=== PATIENT | female | born 1950 | race Caucasian/White ===

== ENCOUNTER → 2016-08-18 | Outpatient (CLI) | payer OTHER | LOC: FIMAGING 13:33 | PROVIDERS: ATTEND Internal Medicine Endocrinology, Diabetes & Metabolism | DX: R05 Cough (principal) ==

== ENCOUNTER → 2016-08-21 | Outpatient (CLI) | payer OTHER ==
[~2016-08-21] MED LIST: GADOBUTROL 10 ML VIAL IVP ONE
== END ==
LOC: FIMAGING 08:20
PROVIDERS: ATTEND Internal Medicine Endocrinology, Diabetes & Metabolism
DX: R51 Headache (principal); R42 Dizziness and giddiness; H53.8 Other visual disturbances
CPT/HCPCS: 70553; A9585

== ENCOUNTER 2017-10-26 13:10 | Inpatient (IN) | payer OTHER ==
[2017-10-26] MEDS ORDERED: ACETAMINOPHEN 325 MG TAB PO PRN (16:32)
[2017-10-26] MEDS ORDERED: ONDANSETRON 4 MG/2 ML VIAL IVP PRN (16:32)
--- NOTE | 2017-10-26 18:25 | PDGENHP ---
History and Physical History and Physical: CC: Dyspnea and leg edema HISTORY: This patient has a long and complicated history of numerous medical and mental health illnesses in issues which have been chronically difficult to control. 1 of her illnesses is hypothyroidism for which she has chronically been prescribed replacement therapy. Recently however she stopped taking her thyroid a few months ago because of side effects from thyroid replacement tablets. She has been working with Dr. Maldonado as he has recommended resuming therapy but she has been unable to bring herself back to taking this therapy. She has had several recent blood tests with TSH in the 75-80 range with very low hormone levels. He in addition she has had worsening of symptoms from several other issues along with some new symptoms. The primary new symptom at this time is several weeks or probably more like 3 months of progressive dyspnea without cough chest pain palpitations or fevers, along with progressive leg swelling. There is no orthopnea and no nocturnal dyspnea per se. There is no history of heart or lung disease although for reasons that are unclear she does have nocturnal dyspnea and uses oxygen at home at night. She has never been formally tested for sleep apnea and is not as far as I can tell diagnosed with pulmonary hypertension so far. She does have history of coronary artery disease and this is how her mother . Additionally there is ongoing trouble with chronic and very poorly controlled anxiety and panic, depression, and pain. She saw Dr. Maldonado in the clinic yesterday and because of the progressive dyspnea and leg swelling he has referred her to inpatient care here by direct admission for further assessment and treatment of that. In addition he would like to have his trying get her back on thyroid medicine if we can here. I reviewed her past Clinic in hospital records in detail and there is quite a bit of very helpful information, and I have interviewed the patient and obtained quite a bit of other historical information that is very relevant to all of this. Very notable in her life, are some significant traumatic events that I believe have shaped her responses to her medical illnesses and treatments for them. Notable is that some time ago her piano assembler recommended a hysterectomy which the patient did not feel she needed. She had the surgery but ended up with significant injury to bowel and developed severe peritonitis. The patient apparently was home as she was developing her peritonitis and states that she repeatedly told the piano assembler that she was having terrible pain and very ill, but she states the piano assembler told her that this was all expected and she would have to learn to live with it, and called the problem "hysterectomy hysteria". Finally the patient became severely ill sounds like probably in septic shock with severe peritonitis and came into the emergency room where the piano assembler partners found her to be severely ill. She required emergency abdominal surgery in the long stay in ICU. There was quite a bit of pain associated with the peritonitis, and quite a bit of pain in the postop setting. There have also been other traumatic medical episodes, and there has been a very major traumatic episode in terms of a family financial crisis that she feels somehow responsible for and changed her life dramatically as well as the rest of her family. The patient has a very long history now mostly since then of severe anxiety which has never really been well controlled, severe panic attacks, and depression. There was 1 episode where she was admitted to the mental health unit here with suicidal ideation. She also has a chronic pain syndrome and is dependent on chronic prescribed daily narcotics for management of her pain. Quite notable in review of her hospital in clinic records is a very long list of many kinds of medications which she cannot take because of severe side effects. What I find 1 I discussed this with the patient is really pretty much the same thing that I find in her mental health records and her clinic records with Dr. Maldonado. That is that the patient describes after most medications a very prompt reaction of severe pain usually occurring within minutes after taking any tablet. She has spent quite a bit of time and effort over the years switching from medicine to medicine or from brand to brand or supplier to supplier for the same medicine trying to find something that she can tolerate. She often stops taking her medicines altogether including her mental health medicines, her pain medicines and most recently her thyroid medicines. She repeatedly seems to believe that she has found the medicine that she will tolerate only to find that over time she continues to be unable to take the newer medicines or newer brand. Going off of her medicines due to the side effects often leads to dramatic worsening in her pain or her anxiety or panic or depression. Curiously, though the patient states that she has terrible symptoms after taking oral lorazepam, she says she does fine when she gets IV lorazepam. Also though she has had significant difficulty with some oral pain medicines, she has no trouble with her fentanyl patches. There have been a couple of other medicines over time that she was able to tolerate taking orally but really almost no oral medicines have been tolerated. Notably in the psychiatrist's notes from her mental health stay here in 2013, the patient displayed extremely dramatic panic attacks when given any oral medication and complained of severe pain in various parts of her body described in different ways but in unusually intricate detail. In addition the patient repeatedly stated that she felt like she was going to during these episodes there. When I asked the patient about taking any medications, it is very clear that she has extreme fear that drives a sense of panic in anticipation of taking the medicine. This happens pretty much every time she takes any medicine and it has been going this way for years. When I ask her about this fear and sense of panic, she describes that she knows she is going to have terrible pain and she is afraid of that pain. When I ask her other questions about her life and when I read her charts, it appears to me that the patient is fairly consumed with these fears and with this panic but requires ongoing medication on a daily basis such that this is a severely debilitating issue for her on a day-to-day basis. It is remarkable that she has never really had what sounds like any kind of allergic reaction to medications as best I can tell. ROS: Her ongoing chronic pains when I ask her about them now are described by her as constantly changing and always getting worse. Yet I can see from in her chart that she has been saying the same thing for years and quite typically always describes her pain as 10/10 and acutely worse than it has been in the past. Her pains are in multiple locations encompassing most of her body. She does describe to me some decrease in appetite recently and tells me that she has a cracked molar which hurts and she is having trouble eating do that as well. She has no symptoms of fever, rash, joint pain or swelling, digestive problems, nausea, neurologic symptoms. Otherwise 10 system review of systems unrevealing for anything acute PAST MEDICAL HISTORY: Chronic pain syndrome, complex and diffuse, requiring daily prescribed narcotic on which she is dependent Chronic anxiety disorder, chronically poorly controlled in severely debilitating Chronic panic disorder, with again chronically poor control and severely debilitating Major depressive disorder, also poorly controlled over time Peritonitis due to bowel injury from hysterectomy, with severe sepsis, resultant bowel stricture Reflux Hysterectomy Tonsillectomy Cholecystectomy Appendectomy Multiple D and C procedures FAMILY MEDICAL HISTORY: Mother of coronary disease and ischemic heart failure SOCIAL HISTORY: and lives with her No history of tobacco use Some history of secondhand smoke Please see above for further social history MEDICATIONS: Notably the patient has not taken any thyroid medicine for a few months now though she chronically is on thyroid replacement Xanax is her current benzodiazepine, though she has been frequently switching back and forth between different brands of lorazepam and Xanax Fentanyl patch, oxycodone tablets Lovaza, Seroquel, vitamin D3 supplements PHYSICAL EXAMINATION: Vital Signs: Respirations are at 15-16 per minute, and look very relaxed; pulse normal no fever, some mild hypertension at this time Pulse ox monitor: I spent approximately 75 min with the patient at the bedside today. During that entire time she had a pulse oximeter on and I watched throughout. Her oxygen saturation at rest varies between 97 and 99% throughout this time. There were periods where the device was unable to read a good pulse wave and would put up either no reading or Melva Gee is low reading in the upper 80s. Examination: General: alert, oriented, normal mentation, normal attention, and interacts and converses with me normally Psychiatric: She is extremely anxious, with very depressed affect, cries frequently throughout our visit, and very clearly demonstrating significant fear. The fear again is primarily based on concern about impending pain. When I talked to her about using new medications or new therapies and we discuss her pain reactions to past medicines that she has used, she writhes in the bed vigorously and continuously. She does not seem to be at all aware of this until I pointed out to her. There is no tremor no signs of any kind of withdrawal. She is not confused or psychotic. Skin: warm, dry, good color, no rash HEENT: normal Neck: no mass or jvd, no palpable goiter Resps: relaxed Lungs: clear breath sounds Heart: regular, no murmur Abdomen: soft, nondistended, with some mild nonspecific tenderness without any evidence of peritonitis, +BS, no mass Upper Extremities: normal Lower Extremities: There is edema from the feet up to just below the knees with some pitting No Bleeding or bruising Neurologic: normal speech/language, normal canvas baster jumpbasting, no focal weakness IV site: looks normal LABORATORY DATA: She had blood test done at Dr. Joel navarro yesterday which include a TSH of 78, free T3 1.4, free T4 0.1. TSH 1 month ago was at 80 with again a very low hormone level. Also included in yesterday's lab tests were a normal CBC, normal metabolic panel , normal liver panel, normal D-dimer RADIOLOGY STUDIES: None done at this time yet I did review a chest x-ray done a few years ago here, in on my reading of the images there is no sign of any cardiac pulmonary pleural or vascular abnormality or any other significant change 12 LEAD EKG: An EKG was done at the clinic yesterday but so far been unable to see a result or view the tracing but the patient was unaware of there being any abnormalities ASSESSMENT: * severe hypothyroidism in a woman previously diagnosed and treated for thyroid but unwilling to take thyroid medicine for some time now * edema of the legs * 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 list of suspicions * Differential diagnosis also includes right-sided CHF (long history of nocturnal hypoxemia and nocturnal oxygen use) and least likely left-sided heart failure(no sign of pulmonary edema now but needs assessment, could have thyroid heart disease and has family history of left-sided ischemic heart disease) * progressive dyspnea without current evidence of hypoxemia, and a normal lung exam * Consider right-sided heart failure, lung injury from secondhand smoke exposure , thyroid induced left heart disease * severe and poorly controlled anxiety and panic disorders as well as depression ; these are all chronic and historically with poor control * chronic pain syndrome with chronic daily prescribed narcotic dependency * history of traumatic experiences in life including traumatic medical experiences involving severe pain and high risk of I believe that this patient has a severe fear of pain, a severe fear of dying, and unfortunately has come into a state where she has continual anticipation of impending pain and/or . Somehow her fears and her anticipation of impending disaster has transferred to medications, making the taking of oral medications very difficult for her. She suffers severe pains shortly after taking most medications orally, and when discussing any potential new medications with me here is showing very clear psychomotor signs of rapidly rising panic and fear. She has scribe these to concern of pain induced by the medicines that we might consider. As mentioned above it is quite interesting and notable that she can do quite well with intravenous medicines or topically applied medicines, but almost never does well with oral medications so far. Of particular note is that thyroid hormone replacement, which should have no way of really causing any pain being a normal part of her body induces the same pain reactions as other medications. I spent quite a bit of time reviewing all of this in detail with the patient and at the bedside today. The real questions will be how to move her past this. I believe for the moment that we may start with some intravenous thyroid replacement, and I have reviewed her with her repeatedly that this should be just like the Ativan where she can tolerate the IV but not oral form. I reviewed with her that as thyroid hormone is a normal part of her body a cannot possibly cause her any harm as long she gets appropriate doses. Despite this, so far she is very worried about possibly having severe pain and/or severe panic upon receiving this medication. It also may be the case that if she tolerates IV levothyroxine, we may be able to give her liquid oral levothyroxine, and I have discussed with her the idea that I may not be able to transfer her fears and anticipate patient's away from pills and capsules, but we may be able to prevent them from being associated with liquid medications. If we try this and it actually works she may be able to use liquid forms of other medications such as benzodiazepine and others. Of also reviewed with her that she is at great risk for significant worsening medical conditions including heart failure and significant neuropsychiatric issues due to her untreated thyroid condition, and that we must absolutely fine somewhat to get thyroid and her. So far she is willing to attempt to go long with all of this. I would note that her is extremely supportive through all of this discussion, though he is appropriately allowing the patient to engage with me in the discussion, and not forcing himself in any way into the conversation. PLANS: * Inpatient admission to the hospital is clearly indicated due to her multiple issues as above * We have given her a dose of her Xanax from home here in the room right now * Once the Xanax is on board will attempt to give her a dose of IV levothyroxine at low dose and monitor her response * If tolerated will continue IV levothyroxine with gradual increasing and dosing. Over time my plan would be to try and replace the IV levothyroxine with oral liquid levothyroxine here, though if it is not available here we may need to get our pharmacy did order from elsewhere * Continue her Xanax, fentanyl patches, oxycodone and other home medicines otherwise and will allow her to use her home medicine supply so that she is using tablets that she is more confident will be tolerated; her is retrieving those medicine from their home in [place] at this time * Echocardiogram is ordered to try and assess for pulmonary hypertension and right and left ventricular function etc * All trying get tracing of the EKG from the clinic or have Dr. Maldonado tell me what he sees on that tracing * PFTs to be sure there is no chronic obstructive lung disease from her secondhand smoke exposure * Chest x-ray to be sure there is no evidence of any other lung issues or other issues that would impact her respirations * Continue on nocturnal oxygen use here as she does at home I have reviewed the patient's past medical records as part of this assessment, including previous hospitalization and clinic records including laboratory studies, x-ray images, physician notes It is recommended that other treating practitioners consider reviewing notes from Dr. Maldonado clinic records and the behavior health unit records from Dr. Gustabo Phillips if other details of her past assessments to the reader would be helpful
[2017-10-26] MEDS: LEVOTHYROXINE 100 MCG/5 ML SYR IVP SCH (18:43)
[2017-10-26] MEDS ORDERED: ALPRAZolam 1 MG TAB PO PRN (18:51)
[2017-10-26] MEDS ORDERED: ESTRADIOL VIVELLE 0.075 MG PATCH TD SCH (19:00)
[2017-10-27] MEDS: OXYCODONE IR PO PRN ×4 (08:55→21:13)
[2017-10-27] MEDS: ENOXAPARIN 40 MG/0.4 ML SYR SC SCH (08:56)
[2017-10-27] MEDS ORDERED: POLYETHYLENE GLYCOL 3350 17 GM PKT PO SCH (09:00)
--- NOTE | 2017-10-27 09:26 | ASMTLACE ---
NEERAJ Acuity / Level of Answers: Yes Care: Did the patient have an inpatient admission? Comorbidities - select Answers: Coronary Artery Disease all that apply Opioid dependence / Chronic pain # of Emergency department Answers: 0 visits in the last 6 months Social determinants Answers: History of trauma (PTSD, child abuse, domestic violence, etc.) Mental health diagnosis (anxiety, depression, pers onality disorders, etc.) Score: 15 Date Signed: 10/27/2017 09:25 AM Electronically Signed By:Christina Laurent
--- NOTE | 2017-10-27 09:36 | PDMN ---
Medical Necessity Medical necessity: est los>2mn for severe hypothyroidism w/refusal of medication in past, LE edema, progressive dyspnea; comorbid severe and poorly controlled anxiety and panic disorder, chronic pain, major depressive disorder and hx hysterectomy w/peritonitis r/t bowel injury, severe sepsis, bowel stricture; admit for IV levothyroxine w/gradual increase and dosing, transition to oral, r/o pulm htn; per order and H&P 10/26/17
[2017-10-27] MEDS: LEVOTHYROXINE 100 MCG/5 ML SYR IVP SCH (10:21)
--- NOTE | 2017-10-27 12:13 | ASMTCMCOM ---
CM Note CM Note Notes: Pt's chart reviewed for D/C planning. Pt is a 67 y/o female who is hospitalized due to 3 months of progressive dyspnea and leg swelling. Pt has hypothyroidism and is prescribed replacement therapy. She stopped taking her medication approx 3 months ago due to unwanted side effects. In addition Pt has chronic pain, anxiety and depression. Pt has a complicated and lengthy hx of following through with medications due to reported significant side effects; discussions of medications can trigger feelings and symptoms of panic. No allergies have been identified. There appears to be a strong relationship between Pt's medical symptoms, mental illness' and medication compliance. Pt is seeing a therapist. She presently does not have a psychiatrist. She was hospitalized on [facility] in 2013 due to suicidality. Prior to this hospitalization Pt lived independently with her , Dmitriy # [phone]. It is anticipated that she will not have CM needs upon D/C. CM will follow. D/C Anticipate independent. Date Signed: 10/27/2017 12:12 PM Electronically Signed By:Jinny De La Rosa
--- NOTE | 2017-10-27 13:10 | ECHO ---
[email or web address] [address] [address] Main: [phone] Fax: Transthoracic Echocardiogram Name: JENNYFER AC MR#: [id number] Study Date: 10/27/2017 Study Time: 10:43 AM Date of : 1950 Age: 67 year(s) Height: 154.9 cm (61 in.) Weight: 67.13 kg (148 lb.) BSA: 1.66 m2 Gender: Female Examination: Echo Indication: Edema and hypoxemia, hypothyroidism Image Quality: Adequate Contrast: Requested by: Dmitriy Wan BP: 104 mmHg/61 mmHg Heart Rate: Rhythm: Indication: Edema and hypoxemia, hypothyroidism Procedure Staff Group Chief Operator: Savannah Otto RDCS Reading Physician: Roverto Velásquez MD Requesting Provider: Conclusions: No pericardial effusion. Preserved left ventricular systolic function. Mild left atrial enlargement. Mild mitral regurgitation. Mild tricuspid regurgitation with normal right ventricular systolic pressure. Measurements: Chambers Valvular Assessment AV/MV Valvular Assessment TV/PV Normal Normal Normal Name Value Range Name Value Range Name Value Range Ao Nava (2D): 2.2 cm (1.4 cm-2.6 AV Vmax: 1.25 m/s (1 m/s-1.7 PV Vmax: 0.88 m/s (0.6 m/s-0.9 cm) m/s) m/s) IVSd (2D): 0.9 cm (0.6 cm-1.1 AV maxP mmHg ( - ) PV PGmax: 3 mmHg ( - ) cm) AV meanP mmHg ( - ) LVDd (2D): 3.7 cm (3.9 cm-5.3 JOSE (VTI): 3.3 cm ( - ) cm) MV E Vmax: 0.84 m/s ( - ) LVDs (2D): 2.6 cm (2.1 cm-4 MV A Vmax: 1.04 m/s ( - ) cm) MV E/A: 0.81 ( - ) LVPWd (2D): 0.9 cm ( - ) MV PHT: 0.056 s ( - ) LVOTd 2.0 cm 2.0 cm mm MVA (PHT): 3.9 s ( - ) LVEF (2D): 60 (>=54 %) RVDd(2D): 3.2 cm (1.9 cm-3.8 cmmm) Continued Measurements: Chambers Valvular Assessment AV/MV Name Value Name Value LADs: 3.8 cm MV DecTime: 169 m/s LADs Lon.6 cm MV E/E' Lateral: 11.50 LA Area: 18.6 cm2 LA Volume: 64 ml LA Volume Index: 38.6 ml/m2 Patient: JENNYFER AC Study Date: 10/27/2017 Page 1 of 2 10:43 AM RA Area: 15.3 cm2 Additional Vessels Name Value Ao Ascendin.2 cm Findings: Left Ventricle: Normal size left ventricle. No LV hypertrophy. Normal global systolic LV function. EF is 60 %. No regional wall motion abnormality. Unable to assess diastolic dysfunction. Right Ventricle: Normal size right ventricle. Normal RV function. Left Atrium: The left atrium is mildly dilated. Right Atrium: The right atrium is normal in size. Mitral Valve: The mitral valve is normal in appearance and function. Mild mitral valve regurgitation is present. No mitral stenosis is present. Aortic Valve: The aortic valve is tri-leaflet. Mild aortic valve regurgitation is present. No aortic valve stenosis is present. Tricuspid Valve: The tricuspid valve is normal in appearance and function. Mild tricuspid regurgitation is present. The pulmonary artery pressure is normal. Pulmonic Valve: The pulmonic valve is normal in appearance and function. There is no pulmonic regurgitation seen. Aorta: The aorta is normal. Normal size aortic root measuring 2.2 cm. Normal size ascending aorta measuring 3.2 cm. IVC: Subcostal not well visualized. Pericardium: No pericardial effusion. No pleural effusion. Exam Comments: Patient has chronic pain and is unable to tolerate much pressure in apical region. Limited acoustic windows. (No Signature Object) Patient: JENNYFER AC Study Date: 10/27/2017 Page 2 of 2 10:43 AM [id number]
[2017-10-27] MEDS: ALPRAZolam 0.5 MG TAB PO PRN ×2 (14:58→21:13)
[2017-10-27] MEDS: POLYETHYLENE GLYCOL 3350 17 GM PKT PO SCH (14:58)
[2017-10-27] MEDS ORDERED: ALBUTEROL 3 ML DEYVIAL ONE (15:19)
--- NOTE | 2017-10-27 17:03 | ASMTCMCOM ---
CM Note CM Note Notes: CM spoke with son. Son and daughter very involved in her care. He has dinner with her 6 nights a week; his sister has dinner with her the seventh night. he has set cameras up in her home so that he can check on her welfare. (His mother is not aware of them). Son reported that he had attempted to have home care services provided by [facility] following her DC from [facility]. When [facility] came to the home his mother refused services; Pt's son believes this is due to her not liking men or sickness and [facility] sent a man with cold symptoms. Son recently decided to once again attempt services with [facility]; he is in agreement that she is in need of PT/OT for increased balance and strength. He seemed resistent to SNF rehab placement; he began to cry when this was brought up as a recommendation. He plans to visit his mother tomorrow and will request a mtg with the CM. CM to follow. D/C Plan: TBD Date Signed: 10/27/2017 05:03 PM Electronically Signed By:Jinny De La Rosa
--- NOTE | 2017-10-27 18:59 | HOSPPROG ---
Hospitalist Progress Note Assessment/Plan: DIAGNOSES: * severe hypothyroidism inpatient has been unwilling to take medication, with thyroid myxedema * severe chronic anxiety disorder, chronic panic disorder, and chronic pain disorder, all intertwined * sense of dyspnea that she is experiencing likely is related to her hypothyroidism as there is no evidence of any cardiac, pulmonary, vascular, anemic or other cause of dyspnea and no hypoxemia * long history of numerous traumatic experiences that underlie the above I reviewed the encouraging normal Cardiac and Pulmonary test results with the patient in detail. At this point I do not think there is any indication for any further evaluation for her dyspnea which I believe is due to her untreated thyroid disease and aggravated by her anxiety disorder. As well I think her edema is probably thyroid myxedema and should recover with treatment of her thyroid disorder, but will follow for results of that. We talked again about the patient's anxiety panic and pain symptoms, her history of traumatic experiences, and how these might be managed. These are all very chronic and complex and intertwined issues. The main thing to start with is getting her thyroid disorder treated, as we will not get anywhere with any of her problems nor prevent other complications and till we get that accomplished. She has received now 2 doses of IV levothyroxine and tolerated them both well with minimal anxiety spells. The plan will be to gradually increase doses of thyroid medicine here and when I am able to get oral liquid thyroxine will switch to oral liquid and try and treat her that way. Once we have enough thyroid medication on board I think she will start to feel somewhat better but will still need lots of other help with all of her issues as above. I reviewed again that we may be able to prescribe for her some oral lorazepam to use as pose the pills that she has an easier time perhaps tolerating that medicine. The patient had numerous questions today and answered these for her. SUBJECTIVE: Remains quite anxious, and with no change in her severe pain. She has now received 2 doses of IV levothyroxine and had minor anxiety symptoms associated with these which actually began before she got either dose, but did not have any untoward pain experiences and did not have significant panic. No other new symptoms at this time OBJECTIVE Vitals reviewed: All stable without fever. There had been a couple of low readings on the pulse oximetry, but these are associated with poor pulse readings when I reviewed them on the monitor and I do not believe there actually real Exam: alert oriented skin warm dry color ok resps not labored lungs clear BSs heart regular abd soft nondistended nontender, bowel sounds present limbs warm, no edema iv site ok Echocardiogram has been done showing good LV function, good RV function, normal pulmonary pressures, no more than trivial valve dysfunctions, no other concerning abnormalities I reviewed chest x-ray images and there is no evidence of any acute or chronic pulmonary or cardiac illness, no effusions, no tumors She has had bedside spirometry done and I reviewed these with the respiratory therapist. She has completely normal pulmonary function testing with bedside spirometry. Objective: Vital Signs Temp Pulse Resp BP Pulse Ox 36.8 C 73 12 138/88 H 87 L 10/27/17 16:00 10/27/17 16:00 10/27/17 16:00 10/27/17 16:00 10/27/17 16:00 10/26/17 10/27/17 10/28/17 06:59 06:59 06:59 Intake Total 650 Balance 650 - Time Spent With Patient Time Spent with Patient: greater than 35 minutes Time Spent with Patient: Greater than 35 minutes spent on this patients care, greater than 50% of time spent counseling, educating, and coordinating care regarding the above mentioned plan. ICD10 Worksheet Patient Problems: Problems Problem Status Onset Depressive disorder Acute
[2017-10-27] MEDS: QUEtiapine FUMARATE 25 MG TAB PO PRN (21:13)
[2017-10-28] MEDS: QUEtiapine FUMARATE 25 MG TAB PO PRN ×2 (03:32→20:51)
[2017-10-28] MEDS: ALPRAZolam 0.5 MG TAB PO PRN ×6 (03:32→23:17)
[2017-10-28] MEDS: OXYCODONE IR PO PRN ×5 (03:33→20:51)
[2017-10-28] MEDS: fentaNYL 75 MCG PATCH TD SCH ×2 (09:13→09:21)
[2017-10-28] MEDS: ENOXAPARIN 40 MG/0.4 ML SYR SC SCH (09:21)
[2017-10-28] MEDS: LEVOTHYROXINE 100 MCG/5 ML SYR IVP SCH (11:00)
--- NOTE | 2017-10-28 11:19 | ASMTCMCOM ---
CM Note CM Note Notes: Please disregard the note at 5:03pm it was for another pt Date Signed: 10/28/2017 11:18 AM Electronically Signed By:Mary Domínguez RN
[2017-10-28] MEDS: POLYETHYLENE GLYCOL 3350 17 GM PKT PO SCH (13:50)
--- NOTE | 2017-10-28 17:48 | HOSPPROG ---
Hospitalist Progress Note Assessment/Plan: DIAGNOSES: * severe hypothyroidism inpatient has been unwilling to take medication, with thyroid myxedema * severe chronic anxiety disorder, chronic panic disorder, and chronic pain disorder, all intertwined * sense of dyspnea that she is experiencing likely is related to her hypothyroidism as there is no evidence of any cardiac, pulmonary, vascular, anemic or other cause of dyspnea and no hypoxemia * long history of numerous traumatic experiences that underlie the above I reviewed the encouraging normal Cardiac and Pulmonary test results with the patient in detail. At this point I do not think there is any indication for any further evaluation for her dyspnea which I believe is due to her untreated thyroid disease and aggravated by her anxiety disorder. As well I think her edema is probably thyroid myxedema and should recover with treatment of her thyroid disorder, but will follow for results of that. The patient has now tolerated 3 doses of IV levothyroxine without difficulty. At this point I would increase her dose starting tomorrow. I have the pharmacist working to try and come up either with a source of oral liquid levothyroxine oral way to formulate the same. As soon as we have that available I will switch to oral levothyroxine. My goal would be to discharge her on a dose of 75 mcg daily, with very close attention in clinic to her symptoms and follow-up TSH and thyroid hormone levels testing in few weeks. The necessary dose would be difficult to predict due to uncertain disease of the absorption of the oral form compared to tablet form in her case, but this would be the usual scenario of titrating up new thyroid therapy. The patient continues to have as always her severe anxiety, fear, and panic, and pain, which as usual she describes as being the worst she has ever had and bad enough that she thought she might from the pain. SUBJECTIVE: No significant symptoms with today's dose of levothyroxine Took a shower today without taking any pain or anxiety medicine before hand. She would normally take these medicines before hand at home but the nurse was not comfortable with that. The result was is patient got into the shower when the water was still bit cold and this triggered severe panic in severe pain which lasted for hours for her. Otherwise today she does mention that she is feeling much more alert and clear minded, and perhaps a better appetite. OBJECTIVE Vitals reviewed: All stable without fever. Exam: alert oriented, actually seems to have a slightly better affect today in conversation than the last couple of days a little bit more relaxed skin warm dry color ok resps not labored lungs clear BSs heart regular abd soft nondistended nontender, bowel sounds present limbs warm, little change in the edema of her legs since admission iv site ok Echocardiogram has been done showing good LV function, good RV function, normal pulmonary pressures, no more than trivial valve dysfunctions, no other concerning abnormalities I reviewed chest x-ray images and there is no evidence of any acute or chronic pulmonary or cardiac illness, no effusions, no tumors She has had bedside spirometry done and I reviewed these with the respiratory therapist. She has completely normal pulmonary function testing with bedside spirometry. Objective: Vital Signs Temp Pulse Resp BP Pulse Ox 36.8 C 87 16 129/83 H 92 10/28/17 15:14 10/28/17 15:14 10/28/17 15:14 10/28/17 08:00 10/28/17 15:14 10/27/17 10/28/17 10/29/17 06:59 06:59 06:59 Intake Total 1050 Balance 1050 - Time Spent With Patient Time Spent with Patient: greater than 35 minutes Time Spent with Patient: Greater than 35 minutes spent on this patients care, greater than 50% of time spent counseling, educating, and coordinating care regarding the above mentioned plan. ICD10 Worksheet Patient Problems: Problems Problem Status Onset Depressive disorder Acute
[2017-10-28] MEDS ORDERED: LEVOTHYROXINE 100 MCG/5 ML SYR IVP SCH (17:49)
[2017-10-29] MEDS: OXYCODONE IR PO PRN ×5 (02:52→21:46)
[2017-10-29] MEDS: ALPRAZolam 0.5 MG TAB PO PRN ×4 (02:52→21:58)
[2017-10-29] MEDS: QUEtiapine FUMARATE 25 MG TAB PO PRN ×2 (02:53→21:48)
[2017-10-29] MEDS: ENOXAPARIN 40 MG/0.4 ML SYR SC SCH (09:17)
[2017-10-29] MEDS: [UNRECOGNIZED DRUG - OTHER] PO SCH (11:29)
[2017-10-29] MEDS: POLYETHYLENE GLYCOL 3350 17 GM PKT PO SCH (14:18)
--- NOTE | 2017-10-29 19:06 | HOSPPROG ---
Hospitalist Progress Note Assessment/Plan: DIAGNOSES: * severe hypothyroidism inpatient has been unwilling to take medication, with thyroid myxedema * severe chronic anxiety disorder, chronic panic disorder, and chronic pain disorder, all intertwined * sense of dyspnea that she is experiencing likely is related to her hypothyroidism as there is no evidence of any cardiac, pulmonary, vascular, anemic or other cause of dyspnea and no hypoxemia * long history of numerous traumatic experiences that underlie the above I reviewed the encouraging normal Cardiac and Pulmonary test results with the patient in detail. At this point I do not think there is any indication for any further evaluation for her dyspnea which I believe is due to her untreated thyroid disease and aggravated by her anxiety disorder. As well I think her edema is probably thyroid myxedema and should recover with treatment of her thyroid disorder, but will follow for results of that. We have progressed to the point of being able to give her some oral liquid levothyroxine, and I am starting to see, I believe, some mild early improvements in her thyroid condition with a decrease in edema and some better control over manifestations of her anxiety though these are trivial given the overall picture of her severe in global anxiety disorder. The main issue now will be finding some oral liquid levothyroxine that she can get that she is willing to take at home. It looks like the only likely possibility is a FDA approved levothyroxine capsule with liquid formulated medicine in the capsule. The patient seems willing to try taking this. However does not available to the hospital and not available currently and any local pharmacies. I am told that the [facility] pharmacies can obtain this if they order it. I will need to work with her insurance company to get a pre approved for giving her this formulation of levothyroxine, and my plan would be to fax prescription to a local pharmacy and have her bring the pills here. Will have to talk to the pharmacy and have them order it, and it may take some time to get it in. Ideally I would like to have her take the 1st dose here but that may not be practical and will have to see how things progress time tyler Again the patient has many concerns and engages in very lengthy discussion about her anxiety and panic disorders with me today. SUBJECTIVE: Overall she continues to have her usual anxiety and panic issues and frequent bouts of pain associated with these. No other new symptoms or issues today. We were able to give her some oral liquid levothyroxine compound in our pharmacy today, and she took this without incident. She does not notice necessarily feeling any better in any particular way at this time OBJECTIVE Vitals reviewed: All stable without fever. Exam: alert oriented, today on my examination she does have somewhat decreased psychomotor activity during difficult discussions, still remains anxious but I believe it actually by my assessment looks a little bit better though she does not notice any improvement skin warm dry color ok resps not labored lungs clear BSs heart regular abd soft nondistended nontender, bowel sounds present limbs warm, the edema of her legs is not gone but is improved notably today compared to previous exams iv site ok Echocardiogram has been done showing good LV function, good RV function, normal pulmonary pressures, no more than trivial valve dysfunctions, no other concerning abnormalities I reviewed chest x-ray images and there is no evidence of any acute or chronic pulmonary or cardiac illness, no effusions, no tumors She has had bedside spirometry done and I reviewed these with the respiratory therapist. She has completely normal pulmonary function testing with bedside spirometry. Objective: Vital Signs Temp Pulse Resp BP Pulse Ox 36.9 C 67 18 122/69 H 88 L 10/29/17 16:00 10/29/17 16:00 10/29/17 16:00 10/29/17 16:00 10/29/17 16:00 10/28/17 10/29/17 10/30/17 06:59 06:59 06:59 Intake Total 7903 037 2500 Balance 1962 537 9468 - Time Spent With Patient Time Spent with Patient: greater than 35 minutes Time Spent with Patient: Greater than 35 minutes spent on this patients care, greater than 50% of time spent counseling, educating, and coordinating care regarding the above mentioned plan. ICD10 Worksheet Patient Problems: Problems Problem Status Onset Depressive disorder Acute
[2017-10-29] MEDS ORDERED: POLYETHYLENE GLYCOL 3350 17 GM PKT PO ONE (20:16)
[2017-10-30] MEDS: ALPRAZolam 0.5 MG TAB PO PRN ×3 (03:45→15:10)
[2017-10-30] MEDS: OXYCODONE IR PO PRN ×5 (04:09→22:19)
[2017-10-30] MEDS: QUEtiapine FUMARATE 25 MG TAB PO PRN ×2 (04:26→22:20)
[2017-10-30] MEDS: ENOXAPARIN 40 MG/0.4 ML SYR SC SCH (08:57)
[2017-10-30] MEDS ORDERED: ESTRADIOL VIVELLE 0.075 MG PATCH TD SCH (09:00)
[2017-10-30] MEDS: fentaNYL 75 MCG PATCH TD SCH (09:25)
[2017-10-30] MEDS: [UNRECOGNIZED DRUG - OTHER] PO SCH ×3 (11:45→14:57)
--- NOTE | 2017-10-30 15:22 | ASMTCMCOM ---
CM Note CM Note Notes: Chart reviewed. Patient has anxiety regarding her medication regime. Mary Vasquez consulted to see patient. Report pending. No therapies ordered at this time. Plan: TBD Date Signed: 10/30/2017 03:14 PM Electronically Signed By:Jovana Fuentes RN
--- NOTE | 2017-10-30 17:24 | HOSPPROG ---
Hospitalist Progress Note Assessment/Plan: DIAGNOSES: * severe hypothyroidism inpatient has been unwilling to take medication, with thyroid myxedema * severe chronic anxiety disorder, chronic panic disorder, and chronic pain disorder, all intertwined * sense of dyspnea that she is experiencing likely is related to her hypothyroidism as there is no evidence of any cardiac, pulmonary, vascular, anemic or other cause of dyspnea and no hypoxemia * long history of numerous traumatic experiences that underlie the above She has now had 2 doses of oral levothyroxine seen in liquid compounded form from our pharmacy. Overall she has tolerated these well, however she has plenty of ongoing anxiety and fear issues, and plenty of ongoing pain and she is able to create scenarios where she feels that somehow the thyroid might be contributing to her pain symptoms. Going through things with her it is clear that the thyroid itself is not causing any pain, but she certainly has quite a bit of anticipatory anxiety going on around the medicine. The compounding form of liquid thyroid we are giving her is not stable and will only last about an hour so there is really not an easy way for us to compound something she can take at home. There are pharmacies that can compound at [place] have to be made in [facility] and shipped to a pharmacy here. Was more practical as there is a brand of liquid levothyroxine and capsules in standard doses, but we are unable to get that medicine here. We were however today able to find out that the [facility] are able to get this medicine and I have put in a prescription and found that her insurance does cover it albeit with a co-pay. I did order a 1 month supply of 75 mcg capsules which hopefully will be to that pharmacy within a day or 2. 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 At that point she should be able to go home and continue follow up with Dr. Maldonado. The oral thyroid medicine has been given here later in the day than would be ideal as they cannot get it formulated so far on the shift nurse manager to bring in for and early a.m. dose before breakfast. At home as with the oral tablets it will be recommended that she takes the capsules before breakfast in the morning I will order a set of thyroid studies tomorrow just to get a glimpse of what direction were going with the current dosing knowing that the TSH will certainly not be anywhere near steady state 4 weeks yet. But I do want to see that her free T3 and free T4 at least coming up reasonably well and that were but she the TSH a little bit. SUBJECTIVE: Overall she continues to have her usual anxiety and panic issues and frequent bouts of pain associated with these. No other new symptoms or issues today. We were able to give her some oral liquid levothyroxine compound in our pharmacy today, and she took this without incident. She does not notice necessarily feeling any better in any particular way at this time OBJECTIVE Vitals reviewed: All stable without fever. Exam: alert oriented, today on my examination she does have somewhat decreased psychomotor activity during difficult discussions, still remains anxious but I believe it actually by my assessment looks a little bit better though she does not notice any improvement skin warm dry color ok resps not labored lungs clear BSs heart regular abd soft nondistended nontender, bowel sounds present limbs warm, the edema of her legs is again slightly better today than in the past iv site ok Echocardiogram has been done showing good LV function, good RV function, normal pulmonary pressures, no more than trivial valve dysfunctions, no other concerning abnormalities I reviewed chest x-ray images and there is no evidence of any acute or chronic pulmonary or cardiac illness, no effusions, no tumors She has had bedside spirometry done and I reviewed these with the respiratory therapist. She has completely normal pulmonary function testing with bedside spirometry. Objective: Vital Signs Temp Pulse Resp BP Pulse Ox 36.7 C 83 12 167/104 H 94 10/30/17 15:16 10/30/17 15:16 10/30/17 15:16 10/30/17 16:25 10/30/17 15:16 10/29/17 10/30/17 10/31/17 06:59 06:59 06:59 Intake Total 250 1850 Balance 250 1850 - Time Spent With Patient Time Spent with Patient: greater than 25 minutes Time Spent with Patient: Greater than 25 minutes spent on this patients care, greater than 50% of time spent counseling, educating, and coordinating care regarding the above mentioned plan. ICD10 Worksheet Patient Problems: Problems Problem Status Onset Depressive disorder Acute
[2017-10-30] MEDS: POLYETHYLENE GLYCOL 3350 17 GM PKT PO SCH (17:37)
[2017-10-31] MEDS: ALPRAZolam 0.5 MG TAB PO PRN ×6 (03:44→22:42)
[2017-10-31] MEDS: QUEtiapine FUMARATE 25 MG TAB PO PRN ×2 (03:45→20:53)
[2017-10-31] MEDS: OXYCODONE IR PO PRN ×5 (03:51→20:53)
[2017-10-31] MEDS: ENOXAPARIN 40 MG/0.4 ML SYR SC SCH (07:47)
[2017-10-31] MEDS: [UNRECOGNIZED DRUG - OTHER] PO SCH (10:29)
[2017-10-31] MEDS: POLYETHYLENE GLYCOL 3350 17 GM PKT PO SCH (13:52)
--- NOTE | 2017-10-31 15:58 | HOSPPROG ---
Hospitalist Progress Note Assessment/Plan: DIAGNOSES: * severe hypothyroidism in a patient has been unwilling to take medication, with thyroid myxedema * Has now had 3 days of IV levothyroxine and pre days of oral levothyroxine. * On recheck today there is some initial improvement in her thyroid labs all around in line with what I would expect given her doses which have been intentionally low to start with * severe chronic anxiety disorder, chronic panic disorder, and chronic pain disorder, all intertwined and severely debilitating for this patient * sense of dyspnea that she is experiencing likely is related to her hypothyroidism and anxiety as there is no evidence of any cardiac, pulmonary, vascular, anemic or other cause of dyspnea and no hypoxemia * Occasional readings of hypoxia on pulse oximeter here are also showed with poor pulse wave reading, potentially related to her hypothyroidism and decreased pulses in her finger but we have yet to find any real hypoxemia 1 more getting good pulse readings from the device * long history of numerous traumatic experiences that underlie the above She has now had 3 doses of oral levothyroxine seen in liquid compounded form from our pharmacy. Overall she has tolerated these well, however she has plenty of ongoing anxiety and fear issues, and plenty of ongoing pain and she is able to create scenarios where she feels that somehow the thyroid might be contributing to her pain symptoms. At this point at least in my discussion with her today she is still willing to go ahead with a plan to begin treatment with oral capsules containing liquid levothyroxine preparation (tirosint brand). I had called in a prescription to pharmacy near her house yesterday; the ordered the medicine and now and has arrived there. Her plans to pick it up tonight and either bring it back here tonight or tomorrow morning. Plan is to give her her 1st dose of oral liquid thyroid by capsule tomorrow here. She should be able to discharge after that. I would plan for her to follow up closely with Dr. Maldonado either this Monday or next Monday in clinic to continue close monitoring and maintenance of this new therapy for her. The dose of Tirosint that I ordered for her 75 mcg. Her prior dose of tablets when she was taking it was 100 mcg. According to the manufacture capsules are more reliably absorb so that it may be that 75 mcg is an appropriate dose for her but may need to be increased. This will need to be determined over time. Either way it certainly a good start to get them much in her compared to what it has been happening at home SUBJECTIVE: She continues to have again her usual panic anxiety and pain symptoms As has been seen repeatedly before with medications, she believes that certain symptoms such as blurring of vision today are due to her thyroid medicine OBJECTIVE Vitals reviewed: All stable without fever. Exam: alert oriented, skin warm dry color ok resps not labored lungs clear BSs heart regular abd soft nondistended nontender, bowel sounds present limbs warm, the edema of her legs is again slightly better today than in the past iv site ok Laboratory data: TSH at 62 which is down from most recent of 78, free T4 0.26 up from 0.1 and free T3 2.0 up from 1.4 all from last week Objective: Vital Signs Temp Pulse Resp BP Pulse Ox 36.8 C 72 18 125/73 H 91 L 10/31/17 07:21 10/31/17 07:21 10/31/17 07:21 10/31/17 07:21 10/31/17 07:21 10/30/17 10/31/17 11/01/17 06:59 06:59 06:59 Intake Total 1850 450 Balance 1850 450 ICD10 Worksheet Patient Problems: Problems Problem Status Onset Depressive disorder Acute
[2017-11-01] MEDS: OXYCODONE IR PO PRN ×3 (03:35→13:04)
[2017-11-01] MEDS: QUEtiapine FUMARATE 25 MG TAB PO PRN (03:36)
[2017-11-01] MEDS: ALPRAZolam 0.5 MG TAB PO PRN ×5 (04:01→15:52)
[2017-11-01] MEDS ORDERED: LEVOTHYROXINE 75 MCG PO SCH (06:00)
[2017-11-01] MEDS: ENOXAPARIN 40 MG/0.4 ML SYR SC SCH (08:03)
[2017-11-01] MEDS: fentaNYL 75 MCG PATCH TD SCH (08:37)
[2017-11-01] MEDS: POLYETHYLENE GLYCOL 3350 17 GM PKT PO SCH (13:04)
[2017-11-01 15:54] VITALS: BP 186/99
--- NOTE | 2017-11-23 11:57 | GDS ---
[f rep st] DISCHARGE SUMMARY CONSULTS: None. PROCEDURES: Chest x-ray at admission, which showed patchy bibasilar atelectasis with a small right pleural effusion. HISTORY AND PHYSICAL: Please see previously dictated note by Dr. Wan. ADMISSION DIAGNOSES: 1. Severe hypothyroidism with concern of myxedema. 2. Progressive dyspnea. 3. Severe and poorly controlled anxiety. 4. Chronic pain syndrome. DISCHARGE DIAGNOSES: 1. Severe hypothyroidism 2. Progressive dyspnea, resolved. 3. Severe and poorly controlled anxiety. 4. Chronic pain syndrome. HOSPITAL COURSE: The patient was admitted to the hospital by her PCP because of very abnormal labs and worsening dyspnea, for further evaluation and treatment. She has significant anxiety related to previous medical trauma. A chest x-ray was done at admission, see above. No further specific evaluations were done at the time of admission as labs had been done by PCP just prior to admission. She remained afebrile throughout her stay. She did intermittently require oxygen supplementation up to as high as 3 L on the day of admission, but this quickly resolved and she never required higher than 1 L during sleep after that. Blood pressure was intermittently quite elevated throughout her stay up to the 160s/90s, but it also would come back down to 110s over 70s. It was felt this was related to her severe anxiety. She received IV levothyroxine prior to initiating oral levothyroxine. Dr. Wan had multiple long conversations with her during her stay and eventually was able to arrange for an oral thyroid supplement, of which she was able to take multiple doses prior to leaving, despite ongoing anxiety and fears. Plan was discussed in detail with her and her and she is going to follow up with Dr. Maldonado closely in the clinic after discharge. Symptoms of dyspnea were much decreased and felt likely to be secondary to her severe anxiety. Chronic medications were continued throughout her stay and were not changed. On the day of discharge, she was still very anxious, but was willing to continue to try oral medication at home. DISCHARGE MEDICATIONS: MiraLAX daily, Seroquel 25-50 mg nightly as needed, Vivelle-Dot, Xanax up to 4 times a day as needed, fentanyl patch 75 mcg, oxycodone 20 mg every 4 hours as needed, Tirosint 75 mcg daily. DISCHARGE INSTRUCTIONS: She has been asked to follow up with Dr. Maldonado in the office within the next 1-2 days. If at any time she has increasing shortness of breath, rapidly changing swelling or any other severe symptoms, she can return to the emergency department for evaluation. /[id number]/MODL MTDD
== END 2017-11-01 16:52 | disposition home or self-care (01) | DRG 644 ==
LOC: PREOBSVTOIN 13:16 → F3E 13:53
PROVIDERS: ADMIT Internal Medicine; ATTEND Internal Medicine
DX: E03.9 Hypothyroidism, unspecified (principal); G89.4 Chronic pain syndrome; F11.20 Opioid dependence, uncomplicated; I25.10 Atherosclerotic heart disease of native coronary artery without angina pectoris; F41.0 Panic disorder [episodic paroxysmal anxiety]; F32.9 Major depressive disorder, single episode, unspecified
CPT/HCPCS: 84481-90; J1650; J7613

== ENCOUNTER 2017-12-21 17:07 | Inpatient (IN) | payer OTHER ==
[2017-12-21] MEDS ORDERED: NS 50 ML IV ONE (18:00)
[2017-12-21 18:34] LABS: PLATELET COUNT 248 10^3/uL (150-400)
--- NOTE | 2017-12-21 18:36 | EDPHY ---
H & P Time Seen by Provider: 12/21/17 17:57 HPI/ROS: CHIEF COMPLAINT: Abdominal pain HISTORY OF PRESENT ILLNESS: The patient is a 67-year-old female who presents emergency department with chronic and diffuse pain. She also has worsening abdominal pain for the past week. She describes it as right upper quadrant and epigastric. It is severe. She has had nausea with no vomiting. No fevers or chills. No diarrhea. No dysuria frequency. The patient was seen by her primary care physician Dr. Maldonado on Monday. She had laboratory studies ordered and a consult arranged with [facility]. She was seen earlier today by Dr. Cline and he sent her to the emergency department for further evaluation. REVIEW OF SYSTEMS: My complete review of systems is negative except as mentioned in the HPI. Past Medical/Surgical History: Includes chronic pain, high LFTs, sigmoid bowel stricture, polyps, rheumatic fever Past surgical history: Includes cholecystectomy, tonsillectomy, total abdominal hysterectomy, polyp removal, eye surgery Smoking Status: Never smoked Physical Exam: Vitals noted. 37.2, 213/111, 1 1, 16, 80% on room air GENERAL: [Moderate acute distress, alert]. HEENT: [Eyes normal to inspection, normal pharynx, no signs of dehydration]. NECK: [No thyromegaly, no lymphadenopathy, supple. RESPIRATORY: [Clear to auscultation bilaterally, no rales, rhonchi or wheezing] . CVS: [Regular rate and rhythm, no rubs, murmurs, or gallops]. ABDOMEN: [Soft, epigastric tenderness palpation with no rebound or guarding, nondistended, no organomegaly]. BACK: [Normal to inspection, no CVA tenderness]. SKIN: [Normal color, no rash, warm, dry. No pallor]. EXTREMITIES: [No pedal edema, no calf tenderness, no Homans sign or cords, no joint swelling]. NEURO/PSYCH: [Alert and oriented, normal mood and affect, normal motor sensory exam. Constitutional: Initial Vital Signs Temperature (C) 37.2 C 12/21/17 17:13 Heart Rate 101 H 12/21/17 17:13 Respiratory Rate 16 12/21/17 17:13 Blood Pressure 213/111 H 12/21/17 17:13 O2 Sat (%) 88 L 12/21/17 17:13 O2 Delivery Mode Room Air Allergies/Adverse Reactions: amoxicillin trihydrate [From Augmentin] Allergy (Verified 12/21/17 17:11) clonazepam [From Klonopin] Allergy (Verified 12/21/17 17:11) potassium clavulanate [From Augmentin] Allergy (Verified 12/21/17 17:11) arbitrary pill ssensitvity Allergy (Uncoded 12/21/17 17:11) Home Medications: Medication Instructions Recorded Polyethylene Glycol 3350 [Miralax 17 gm PO DAILY 01/01/14 17 gm (*)] Estradiol [Vivelle-Dot 0.075MG (*)] 0.075 mg TD Q4D 10/26/17 Oxycodone Ir (*) 20 mg PO Q4H PRN 10/26/17 fentaNYL [Duragesic 75 MCG Patch 75 mcg TD Q4D 10/26/17 (*)] Medical Decision Making - Diagnostics Imaging Results: Imaging Impressions Abdomen CT 12/21/17 18:33 Impression: 1. Mild prominence of the biliary tree with common bile duct measuring up to 0.7 cm, patient is status post cholecystectomy. No radiopaque stones are identified. Correlation with alkaline phosphatase and bilirubin is recommended for evaluation of biliary obstructive process, MRCP may be useful as clinically warranted. 2. Moderate amount retained fecal material in the redundant colon compatible with constipation. These findings were discussed with Dr. Santamaria by telephone at 8:00 PM on 2017. ED Course/Re-evaluation: In the emergency department I discussed possible etiologies with the patient. I answered all her questions. IV was placed. Laboratory studies were ordered. CT of the abdomen pelvis was ordered. The patient was given Dilaudid 0.5 mg IV for pain and Zofran 4 mg IV for nausea. Patient's white count is elevated at 11.55. Patient is not anemic. Platelets are normal. Chemistry panel is pending. UA is unremarkable. Lactic acid is 1.2. 1853: Patient's sodium is low 134. Potassium low at 2.9. Carbon dioxide high at 33. Chloride low at 88. Anion gap is 13 %period% creatinine is 0.7. Patient 's bilirubin is normal. AST is elevated 157 and ALT elevated at 276. Alk phos elevated at 215. Lipase normal 87. The patient was given potassium chloride, 60 mEq orally. The patient states she was unable to tolerate oral intake. She states that Haldol works in the past for nausea. She is given 2.5 of Haldol IV. I discussed the case with Dr. Solano from [facility]. They will see the patient in the morning. I discussed the case with Dr. Mack from the hospitalist service. He will admit the patient. Differential Diagnosis: My differential includes but is not limited to cholangitis, retained stone, hepatitis, pancreatitis, GERD, peptic ulcer disease, perforation, small-bowel obstruction, urinary tract infection, bacteremia, sepsis - Data Points Laboratory Results: Laboratory Results 12/21/17 18:22 12/21/17 18:22 12/21/17 12/21/17 12/21/17 18:22 18:22 18:22 WBC 11.55 10^3/uL H 10^3/uL (3.80-9.50) RBC 5.03 10^6/uL 10^6/uL (4.18-5.33) Hgb 15.7 g/dL g/dL (12.6-16.3) Hct 44.8 % % (38.0-47.0) MCV 89.1 fL fL (81.5-99.8) MCH 31.2 pg pg (27.9-34.1) MCHC 35.0 g/dL g/dL (32.4-36.7) RDW 13.3 % % (11.5-15.2) Plt Count 248 10^3/uL 10^3/uL (150-400) MPV 10.3 fL fL (8.7-11.7) Neut % (Auto) 75.3 % H % (39.3-74.2) Lymph % (Auto) 17.7 % % (15.0-45.0) [place] % (Auto) 6.1 % % (4.5-13.0) Eos % (Auto) 0.1 % L % (0.6-7.6) Baso % (Auto) 0.3 % % (0.3-1.7) Nucleat RBC Rel Count 0.0 % % (0.0-0.2) Absolute Neuts (auto) 8.70 10^3/uL H 10^3/uL (1.70-6.50) Absolute Lymphs (auto) 2.04 10^3/uL 10^3/uL (1.00-3.00) Absolute Monos (auto) 0.71 10^3/uL 10^3/uL (0.30-0.80) Absolute Eos (auto) 0.01 10^3/uL L 10^3/uL (0.03-0.40) Absolute Basos (auto) 0.03 10^3/uL 10^3/uL (0.02-0.10) Absolute Nucleated RBC 0.00 10^3/uL 10^3/uL (0-0.01) Immature Gran % 0.5 % % (0.0-1.1) Immature Gran # 0.06 10^3/uL 10^3/uL (0.00-0.10) VBG Lactic Acid 1.2 mmol/L mmol/L (0.7-2.1) Sodium 134 mEq/L L mEq/L (135-145) Potassium 2.9 mEq/L L mEq/L (3.3-5.0) Chloride 88 mEq/L L mEq/L (97-110) Carbon Dioxide 33 mEq/l H mEq/l (22-31) Anion Gap 13 mEq/L mEq/L (8-16) BUN 20 mg/dL mg/dL (7-23) Creatinine 0.7 mg/dL mg/dL (0.6-1.0) Estimated GFR > 60 Glucose 99 mg/dL mg/dL (70-100) Calcium 9.9 mg/dL mg/dL (8.5-10.4) Total Bilirubin 0.9 mg/dL mg/dL (0.1-1.4) Conjugated Bilirubin 0.3 mg/dL mg/dL (0.0-0.5) Unconjugated Bilirubin 0.6 mg/dL mg/dL (0.0-1.1) AST 157 IU/L H IU/L (14-46) ALT 276 IU/L H IU/L (9-52) Alkaline Phosphatase 215 IU/L H IU/L (38-126) Total Protein 8.0 g/dL g/dL (6.3-8.2) Albumin 4.6 g/dL g/dL (3.5-5.0) Lipase 87 IU/L IU/L (23-300) Urine Color Urine Appearance Urine pH Ur Specific [place] Urine Protein Urine Ketones Urine Blood Urine Nitrate Urine Bilirubin Urine Urobilinogen Ur Leukocyte Esterase Urine RBC Urine WBC Ur Epithelial Cells Urine Bacteria Urine Mucus Urine Glucose 12/21/17 17:25 WBC RBC Hgb Hct MCV MCH MCHC RDW Plt Count MPV Neut % (Auto) Lymph % (Auto) [place] % (Auto) Eos % (Auto) Baso % (Auto) Nucleat RBC Rel Count Absolute Neuts (auto) Absolute Lymphs (auto) Absolute Monos (auto) Absolute Eos (auto) Absolute Basos (auto) Absolute Nucleated RBC Immature Gran % Immature Gran # VBG Lactic Acid Sodium Potassium Chloride Carbon Dioxide Anion Gap BUN Creatinine Estimated GFR Glucose Calcium Total Bilirubin Conjugated Bilirubin Unconjugated Bilirubin AST ALT Alkaline Phosphatase Total Protein Albumin Lipase Urine Color YELLOW Urine Appearance HAZY Urine pH 6.0 (5.0-7.5) Ur Specific [place] 1.021 (1.002-1.030) Urine Protein 1+ H (NEGATIVE) Urine Ketones TRACE H (NEGATIVE) Urine Blood NEGATIVE (NEGATIVE) Urine Nitrate NEGATIVE (NEGATIVE) Urine Bilirubin NEGATIVE (NEGATIVE) Urine Urobilinogen NEGATIVE EU EU (0.2-1.0) Ur Leukocyte Esterase NEGATIVE (NEGATIVE) Urine RBC 1-3 /hpf /hpf (0-3) Urine WBC 1-3 /hpf /hpf (0-3) Ur Epithelial Cells TRACE /lpf /lpf (NONE-1+) Urine Bacteria TRACE /hpf H /hpf (NONE SEEN) Urine Mucus TRACE /lpf /lpf (NONE-1+) Urine Glucose NEGATIVE (NEGATIVE) Medications Given: Discontinued Medications Haloperidol Lactate (Haldol Injection) 2.5 mg IVP EDNOW ONE Stop: 12/21/17 20:01 Last Admin: 12/21/17 20:03 Dose: 2.5 mg Hydromorphone HCl (Dilaudid) 0.5 mg IVP EDNOW ONE Stop: 12/21/17 18:38 Last Admin: 12/21/17 18:54 Dose: 0.5 mg Sodium Chloride (Ns) 50 mls @ 0 mls/hr IV EDNOW ONE; Wide Open PRN Reason: Protocol Stop: 12/21/17 18:01 Last Admin: 12/21/17 18:35 Dose: 50 mls Ondansetron HCl (Zofran Odt) 4 mg PO EDNOW ONE Stop: 12/21/17 18:38 Last Admin: 12/21/17 18:56 Dose: Not Given Ondansetron HCl (Zofran) 4 mg IVP EDNOW ONE Stop: 12/21/17 18:56 Last Admin: 12/21/17 18:55 Dose: 4 mg Departure - Departure Disposition: [facility] Inpatient Acute Clinical Impression: Hypokalemia, Hyponatremia Abdominal pain Qualifiers: Abdominal location: right upper quadrant Qualified Code(s): R10.11 - Right upper quadrant pain Condition: Good Referrals: Canelo Maldonado MD [Primary Care Provider] - As per Instructions
[2017-12-21] MEDS ORDERED: ONDANSETRON DISINTEGRATING 4 MG TAB PO ONE (18:37)
[2017-12-21] MEDS ORDERED: HYDROmorphONE/DILAUDID 2 MG/ML INJ IVP ONE ×2 (18:37→20:47)
[2017-12-21] MEDS ORDERED: IOPAMIDOL (ISOVUE-300) 100 ML BTL ONE (18:40)
[2017-12-21] MEDS ORDERED: ONDANSETRON 4 MG/2 ML VIAL ONE (18:52)
[2017-12-21] MEDS ORDERED: POTASSIUM CL 20 MEQ/15 ML UDCUP PO ONE (18:55)
[2017-12-21] MEDS ORDERED: ONDANSETRON 4 MG/2 ML VIAL IVP ONE (18:55)
[2017-12-21] MEDS ORDERED: HALOPERIDOL LACT 5 MG/ML INJ IVP ONE (20:00)
[2017-12-21] MEDS ORDERED: PROMETHAZINE HCL 25 MG/ML INJ IVP PRN (21:22)
[2017-12-21] MEDS ORDERED: ACETAMINOPHEN 325 MG TAB PO PRN (21:22)
[2017-12-21] MEDS ORDERED: ONDANSETRON DISINTEGRATING 4 MG TAB PO PRN (21:22)
[2017-12-21] MEDS ORDERED: ONDANSETRON 4 MG/2 ML VIAL IVP PRN (21:22)
[2017-12-21] MEDS ORDERED: OXYCODONE IR PO PRN (21:24)
[2017-12-21] MEDS ORDERED: NS 1,000 ML IV SCH (21:30)
--- NOTE | 2017-12-21 22:05 | PDGENHP ---
History and Physical - Chief Complaint abdominal pain, fever - History of Present Illness 67yo F with chronic pain on opioids, anxiety with benzodiazepine dependence, hypothyroidism who presents from GI clinic for abdominal pain and fever. She has been having worsening mostly left sided abdominal pain for several weeks. Associated with nausea, non-bilious/non-bloody vomiting, chills, anorexia, constipation. She had initially attributed her symptoms to starting thyroid replacement after hospitalization in early November. However, her symptoms did not improve after self-discontinuing her thyroid medication. She has also tapered off her benzodiazepine and completely stopped taking about one week ago. She had visited her PCP for evaluation of these symptoms who had referred her to see a government program manager. She was at the GI clinic today when they referred her to the ED because of a low-grade fever and abdominal complaints. Of note, she was evaluated at [facility] ED for similar symptoms on 12/[address] had no acute findings; labs showed transaminitis (AST 335, ALT 259) . Her symptoms improved with haldol. Case discussed with ED physician Dr Ivanna Jimenez. Prior records reviewed, including recent hospitalization at [facility] and ED visit at [facility]. History Information - Allergies/Home Medication List Allergies/Adverse Reactions: amoxicillin trihydrate [From Augmentin] Allergy (Verified 12/21/17 17:11) clonazepam [From Klonopin] Allergy (Verified 12/21/17 17:11) potassium clavulanate [From Augmentin] Allergy (Verified 12/21/17 17:11) arbitrary pill ssensitvity Allergy (Uncoded 12/21/17 17:11) Home Medications: Estradiol [Vivelle-Dot 0.075MG (*)] 0.075 mg TD Q4D 10/26/17 [Last Taken ] Oxycodone Ir (*) 20 mg PO Q4H PRN 10/26/17 [Last Taken 12/21/17 10:00] fentaNYL [Duragesic 75 MCG Patch (*)] 75 mcg TD Q4D 10/26/17 [Last Taken ] Haloperidol [Haldol 5 MG (*)] 5 mg PO BID PRN 12/21/17 [Last Taken Unknown] Levothyroxine [Synthroid 75 mcg (*)] 75 mcg PO DAILY06 12/21/17 [Last Taken Unknown] Ondansetron [Zofran Odt] 8 mg PO Q6HRS PRN 12/21/17 [Last Taken Unknown] fentaNYL [Duragesic 75 MCG Patch (*)] 75 mcg TD Q4D 12/21/17 [Last Taken ] I have personally reviewed and updated: family history, medical history, social history, surgical history - Past Medical History Additional medical history: chronic pain with opioid dependence, anxiety with benzodiazepine dependence, hypothyroidism, depression/anxiety, HTN - Surgical History Additional surgical history: tonsillectomy, appendectomy, cholecystectomy, hysterectomy - Family History Positive for: non-pertinent - Social History Smoking Status: Never smoked Alcohol Use: None Drug Use: None Additional social history: lives with Review of Systems Review of Systems: ROS: 10pt was reviewed & negative except for what was stated in HPI & below Physical Exam Physical Exam: Temp Pulse Resp BP Pulse Ox 37.2 C 71 16 161/91 H 91 L 12/21/17 22:00 12/21/17 22:00 12/21/17 22:00 12/21/17 22:00 12/21/17 22:00 O2 (L/minute) 1.5 Constitutional: no apparent distress, not in pain, other (appears tired) Eyes: PERRL, anicteric sclera, EOMI Ears, Nose, Mouth, Throat: moist mucous membranes, hearing normal, ears appear normal, no oral mucosal ulcers Cardiovascular: regular rate and rhythym, no murmur, rub, or gallop, No edema Respiratory: no respiratory distress, no rales or rhonchi, clear to auscultation Gastrointestinal: tenderness (L>R side, no rebound or gaurding), No peoples's sign, No hepatosplenomegally, No guarding, No rebound, No distension Genitourinary: no bladder fullness, no bladder tenderness Skin: warm, normal color, no rashes or abrasions, no fluctuance, no induration, No mottled Neurologic: AAOx3 Psychiatric: interacting appropriately, not anxious, not encephalopathic, thought process linear Lab Data & Imaging Review 12/21/17 18:22 12/21/17 18:22 WBC 11.55 10^3/uL (3.80-9.50) H 12/21/17 18:22 RBC 5.03 10^6/uL (4.18-5.33) 12/21/17 18:22 Hgb 15.7 g/dL (12.6-16.3) 12/21/17 18: Hct 44.8 % (38.0-47.0) 12/21/17 18:22 MCV 89.1 fL (81.5-99.8) 12/21/17 18: MCH 31.2 pg (27.9-34.1) 12/21/17 18: MCHC 35.0 g/dL (32.4-36.7) 12/21/17 18: RDW 13.3 % (11.5-15.2) 12/21/17 18: Plt Count 248 10^3/uL (150-400) 12/21/17 18: MPV 10.3 fL (8.7-11.7) 12/21/17 18: Neut % (Auto) 75.3 % (39.3-74.2) H 12/21/17 18: Lymph % (Auto) 17.7 % (15.0-45.0) 12/21/17 18: [place] % (Auto) 6.1 % (4.5-13.0) 12/21/17 18: Eos % (Auto) 0.1 % (0.6-7.6) L 12/21/17 18: Baso % (Auto) 0.3 % (0.3-1.7) 12/21/17 18: Nucleat RBC Rel Count 0.0 % (0.0-0.2) 12/21/17 18: Absolute Neuts (auto) 8.70 10^3/uL (1.70-6.50) H 12/21/17 18:22 Absolute Lymphs (auto) 2.04 10^3/uL (1.00-3.00) 12/21/17 18: Absolute Monos (auto) 0.71 10^3/uL (0.30-0.80) 12/21/17 18: Absolute Eos (auto) 0.01 10^3/uL (0.03-0.40) L 12/21/17 18:22 Absolute Basos (auto) 0.03 10^3/uL (0.02-0.10) 12/21/17 18:22 Absolute Nucleated RBC 0.00 10^3/uL (0-0.01) 12/21/17 18: Immature Gran % 0.5 % (0.0-1.1) 12/21/17 18:22 Immature Gran # 0.06 10^3/uL (0.00-0.10) 12/21/17 18:22 VBG Lactic Acid 1.2 mmol/L (0.7-2.1) 12/21/17 18:22 Sodium 134 mEq/L (135-145) L 12/21/17 18:22 Potassium 2.9 mEq/L (3.3-5.0) L 12/21/17 18:22 Chloride 88 mEq/L (97-110) L 12/21/17 18: Carbon Dioxide 33 mEq/l (22-31) H 12/21/17 18:22 Anion Gap 13 mEq/L (8-16) 12/21/17 18:22 BUN 20 mg/dL (7-23) 12/21/17 18: Creatinine 0.7 mg/dL (0.6-1.0) 12/21/17 18:22 Estimated GFR > 60 12/21/17 18: Glucose 99 mg/dL (70-100) 12/21/17 18: Calcium 9.9 mg/dL (8.5-10.4) 12/21/17 18:22 Total Bilirubin 0.9 mg/dL (0.1-1.4) 12/21/17 18: Conjugated Bilirubin 0.3 mg/dL (0.0-0.5) 12/21/17 18: Unconjugated Bilirubin 0.6 mg/dL (0.0-1.1) 12/21/17 18:22 AST 157 IU/L (14-46) H 12/21/17 18:22 ALT 276 IU/L (9-52) H 12/21/17 18:22 Alkaline Phosphatase 215 IU/L (38-126) H 12/21/17 18:22 Total Protein 8.0 g/dL (6.3-8.2) 12/21/17 18:22 Albumin 4.6 g/dL (3.5-5.0) 12/21/17 18:22 Lipase 87 IU/L (23-300) 12/21/17 18:22 Urine Color YELLOW 12/21/17 17:25 Urine Appearance HAZY 12/21/17 17:25 Urine pH 6.0 (5.0-7.5) 12/21/17 17:25 Ur Specific [place] 1.021 (1.002-1.030) 12/21/17 17:25 Urine Protein 1+ (NEGATIVE) H 12/21/17 17:25 Urine Ketones TRACE (NEGATIVE) H 12/21/17 17:25 Urine Blood NEGATIVE (NEGATIVE) 12/21/17 17:25 Urine Nitrate NEGATIVE (NEGATIVE) 12/21/17 17:25 Urine Bilirubin NEGATIVE (NEGATIVE) 12/21/17 17:25 Urine Urobilinogen NEGATIVE EU (0.2-1.0) 12/21/17 17:25 Ur Leukocyte Esterase NEGATIVE (NEGATIVE) 12/21/17 17:25 Urine RBC 1-3 /hpf (0-3) 12/21/17 17:25 Urine WBC 1-3 /hpf (0-3) 12/21/17 17:25 Ur Epithelial Cells TRACE /lpf (NONE-1+) 12/21/17 17:25 Urine Bacteria TRACE /hpf (NONE SEEN) H 12/21/17 17:25 Urine Mucus TRACE /lpf (NONE-1+) 12/21/17 17:25 Urine Glucose NEGATIVE (NEGATIVE) 12/21/17 17:25 Assessment & Plan Assessment: 67yo F with chronic pain on opioids, anxiety with benzodiazepine dependence, hypothyroidism who presents from GI clinic for abdominal pain and fever found to have electrolyte disturbances and abnormal LFTs. Plan: #Acute on chronic abdominal pain: CT unremarkable for acute pathology. CBD 7mm but this can be dilated up to 10mm in patients s/p cholecystectomy. Query benzodiazepine withdrawal vs manifestation of hypothyroidism vs constipation. - Check TSH, start IV levothyroxine in AM - Morphine IV PRN for breakthrough - Continue home fentanyl patch, oxycodone - Bowel regimen #Transaminitis: With mildly elevated alk phos but normal bilirubin. These are actually downtrending from labs drawn 12/16 at outside ED. With poor PO recently , this could be due to hypoperfusion. - IVF + KCl - Acute hep panel - Recheck LFTs in AM #Hypokalemia: Due to poor PO - Replete, start electrolyte replacement protocol #Hypothyroidism: TSH 72, free T4 0.45 on 12/16. She has been non-compliant with taking her thyroid replacement and has again discontinued. - Levothyroxine as above #Fever: Reported at GI clinic, afebrile here. Mild leukocytosis but CT with no convincing intra-abdominal infection. UA negative - Blood cultures pending #Anxiety: Tapered off benzodiazepines recently. - Haldol is on her JUN, med rec prior to scheduling VTE ppx: LMWH Diet: clears, ADAT Code: full Dispo: Admit as inpatient for management of above. Of note, she has history of challenging
[2017-12-21] MEDS ORDERED: MAGNESIUM HYDROXIDE 30 ML UDCUP PO PRN (22:33)
[2017-12-21] MEDS ORDERED: POLYETHYLENE GLYCOL 3350 17 GM PKT PO PRN (22:33)
[2017-12-21] MEDS ORDERED: BISACODYL 10 MG SUPP PR PRN (22:33)
[2017-12-21] MEDS ORDERED: PROTOCOL POTASSIUM 1 DOSE MISC PRN (22:34)
[2017-12-21] MEDS ORDERED: PROTOCOL MAGNESIUM 1 DOSE IV PRN (22:34)
[2017-12-21] MEDS ORDERED: POTASSIUM Cl (KCl) 100 ML IV SCH (23:30)
[2017-12-21] MEDS: NS W/ 20 KCl/L 1,000 ML IV SCH (23:35)
[2017-12-22] MEDS ORDERED: POTASSIUM CL 20 MEQ/15 ML UDCUP PO ONE (00:23)
[2017-12-22 05:31] LABS: PLATELET COUNT 205 10^3/uL (150-400)
[2017-12-22 07:34] LABS: HEPATITIS A ANTIBODY IGM (BCH) NEGATIVE (NEGATIVE); HEPATITIS B CORE AB IGM NEGATIVE (NEGATIVE); HEPATITIS B SURFACE ANTIGEN NEGATIVE (NEGATIVE)
[2017-12-22] MEDS ORDERED: POTASSIUM CL 10 MEQ TAB PO ONE (08:22)
[2017-12-22] MEDS: fentaNYL 75 MCG PATCH TD SCH (09:09)
[2017-12-22] MEDS: ENOXAPARIN 40 MG/0.4 ML SYR SC SCH (09:09)
[2017-12-22 09:18] LABS: HEPATITIS C ANTIBODY TOTAL NEGATIVE (NEGATIVE)
[2017-12-22] MEDS: SENNOSIDES/DOCUSATE SODIUM TAB PO SCH ×2 (09:44→20:45)
[2017-12-22] MEDS: POLYETHYLENE GLYCOL 3350 17 GM PKT PO SCH ×2 (09:45→20:45)
--- NOTE | 2017-12-22 09:51 | GCON ---
[f rep st] CONSULTATION REFERRING PHYSICIAN: Simeon Mack MD REASON FOR CONSULTATION: Abdominal pain. HISTORY OF PRESENT ILLNESS: I was asked by Dr. Mack to evaluate Ms. Velazquez for abdominal pain. She is a 67-year-old female who was admitted to the hospital on December 21, 2017 for the evaluation of abdominal pain and fever. She was actually seen in our outpatient clinic by Dr. Eddy Cline. She was describing abdominal pain and fever. He reviewed her recent labs, which were significant for abnormal liver tests. He referred her to the emergency room for more urgent evaluation of abdominal pain and fever with concern for biliary tract origin. She reports that she has had on and off abdominal pain symptoms for approximately 6-8 months. They are somewhat colicky in nature. Over the last 10 days she reports they have been more consistent. She will notice abdominal pain, particularly when she is eating. Sometimes that pain is severe. It has been associated with nausea but no vomiting. She denies fever up until this week. She cannot identify any particular food choices that have an impact on her pain. If she eats more frequent smaller meals she reports she was having less discomfort. Of note, she is status post cholecystectomy many years ago. She does not remember exactly the nature of the symptoms she suffered at that time. Of note, she also reports chronic constipation. She describes having some form of colonic stricture. She has been managed for this in the past through the [facility]. She is uncertain as to the etiology of this stricture, or the precise management plan but she recalls it being evaluated with colonoscopy. She describes the pain as throughout the abdomen. In the left lower quadrant, left upper quadrant and right lower quadrant. She reports there is very little if any pain in the right upper quadrant. She described not having had a bowel movement over the last 10 days. She does admit to passing some flatus. She reports no bloody stool. Over the last 10 days of decreased p.o. intake, no bowel movements, et cetera, she has become increasingly weak. Of note, she also has fairly profound hypothyroidism. She is as yet not on thyroid replacement. She has multiple other abdominal complaints as well as other somatic symptoms. She describes headaches, funny taste in her mouth, joint pains, fatigue, weight loss. ALLERGIES: Amoxicillin, Klonopin, potassium clavulanate (Augmentin). HOME MEDICATIONS: Estradiol, oxycodone, fentanyl, Haldol, levothyroxine, Zofran. PAST MEDICAL HISTORY: Includes chronic abdominal pain with opioid dependence, anxiety with benzodiazepine dependence, hypothyroidism, depression, anxiety, as well as hypertension. PAST SURGICAL HISTORY: Includes tonsils, appendectomy, cholecystectomy, hysterectomy. FAMILY HISTORY: Negative for colon cancer. SOCIAL HISTORY: She does not smoke, drink alcohol or use drugs. REVIEW OF SYSTEMS: A complete 14-point review was undertaken with the patient and is negative except for those details described in the history of present illness. PHYSICAL EXAM: GENERAL: This is a well-developed female in no apparent distress. HEENT: Her pupils are equal, round, reactive to light and accommodation. Sclerae nonicteric. Oropharynx is clear. NECK: Supple without lymphadenopathy. HEART: Regular without murmur. LUNGS: Her respiratory exam shows good respiratory effort. ABDOMEN: She has a soft abdomen with no abdominal tenderness. No Tello sign, particularly a note of tenderness with exam. SKIN: Warm and dry without lesions. NEURO: Grossly nonfocal, although her affect is quite flat. PSYCHIATRIC: Reveals interacting normally without anxiety, although again flat affect. Joints show no arthritis. LABORATORY DATA: Shows a white count of 11.55, hemoglobin of 15.7, hematocrit of 44.8, platelet count of 248, MCV of 89. Sodium of 134, potassium of 3.8, chloride of 96, bicarb of 33, BUN of 14, creatinine of 0.6, total bilirubin of 0.7, AST of 100, ALT of 198, alkaline phosphatase of 140. Of note, earlier in this month she had normal liver function tests, lipase of 87, TSH of 65. CT scan of the abdomen and pelvis revealed mild prominence of the biliary tree with a common bile duct measuring 0.7 cm. No stones identified. Moderate amount of retained fecal material and a redundant colon compatible with constipation. Plain x-ray of the abdomen was nonspecific. IMPRESSION/RECOMMENDATIONS: Ms. Velazquez is admitted to the hospital with abdominal pain. In the setting of abnormal liver tests and questionable mild prominence of biliary tree on CAT scan I think we must entertain a biliary source. My overall suspicion for this, however, is somewhat low. She has had intermittent abnormal liver tests in the past. It appears that she has undergone at least a serologic workup of that phenomenon in the past. Her current abnormal liver tests may be true, but unrelated to her abdominal pain symptoms. The differential diagnosis could also include functional abdominal pain related to constipation or hypothyroidism. Celiac disease, H pylori infection, peptic disease, et cetera, could be considered as well. For now, 1. I recommend a more dedicated evaluation of the biliary tree. We can plan MRCP to evaluate the bile ducts. 2. We should continue to follow her liver function tests as well. Perhaps consider ultrasound with Doppler as well to rule out clot. 3. I do not think at this time there is any reason to restrict her diet. 4. It is reasonable to use proton pump inhibitor, meanwhile, empirically. 5. Add miralax scheduled for management of constipation 6. check h.pylori and celiac labs - Dr. Castillo to assume GI rounds 12/23/15 at 5p. - will follow /[id number]/MODL MTDD
[2017-12-22] MEDS: LEVOTHYROXINE 100 MCG/5 ML SYR IVP SCH (11:00)
--- NOTE | 2017-12-22 11:36 | ASMTCASEMG ---
Living Arrangements What is your living Answers: With Spouse arrangement? Who do you live with? Type Of Residence What kind of residence do Answers: House you live in? Discharge Plan Comments Coordination Status Comments Notes: Pt is a 67 y/o female admitted for abdominal pain and constipation. Pt has a hx of depression and anxiety. Pts symptoms may be precipitated by discontinuing her thyroid medication. Pt will d/c independent when medically stable. No therapies ordered at this time. CM available for changes. Plan: Independent Date Signed: 12/22/2017 11:35 AM Electronically Signed By:ZABRINA Valadez
--- NOTE | 2017-12-22 12:49 | HOSPPROG ---
Hospitalist Progress Note Assessment/Plan: patient is a 67yo F with chronic pain on opioids, anxiety with benzodiazepine dependence, hypothyroidism who presents from GI clinic for abdominal pain and fever found to have electrolyte disturbances and abnormal LFTs. Today is my first encounter w the patient, chart reviewed. #Acute on chronic abdominal pain -CT unremarkable for acute pathology. CBD 7mm dilated -possible benzodiazepine withdrawal vs constipation -MRCP ordered -appreciate Dr Solano (reviewed her care with GI,recommended to continue Miralax to help with constipation) -aggressive bowel regimen -if pain persists could get a doppler ultrasound to r/o a clot -H pylori is negative -explained to the patient that hypothyroidism causes vague abdominal complaints , gave her a handout on this #Transaminitis: -hepatitis panel negative -LFT's improving #Hypokalemia: -electrolyte protocol #Hypothyroidism: - TSH 65 , on last admit it was 72, free T4 0.45 on 12/16. - She has been non-compliant with taking her thyroid replacement and has again discontinued. - Levothyroxine iv #Fever: Reported at GI clinic, afebrile here. - Blood cultures pending #Anxiety: Tapered off benzodiazepines recently. - Haldol dose resumed #plan: continue IV hydration, trial of k pad, give her a name of [employer] prior to dc. Subjective: Gayathri said she is having left upper quadrant pain and pain in her lower abdomen. Objective: Vital Signs Temp Pulse Resp BP Pulse Ox 37.0 C 74 16 140/88 H 95 12/22/17 11:37 12/22/17 11:37 12/22/17 11:37 12/22/17 11:37 12/22/17 11:37 Laboratory Results 12/22/17 04:53 - Physical Exam Constitutional: uncomfortable Eyes: PERRL Ears, Nose, Mouth, Throat: hearing normal Cardiovascular: regular rate and rhythym Respiratory: no respiratory distress Gastrointestinal: normoactive bowel sounds, soft, non-tender abdomen (during my exam, she had no significant complaints of pain w palp) Skin: warm, other (skin dry) Neurologic: AAOx3 Psychiatric: flat affect ICD10 Worksheet Patient Problems: Problems Problem Status Onset Abdominal pain Acute Hypokalemia Acute Hyponatremia Acute Depressive disorder Acute
[2017-12-22] MEDS ORDERED: GADOBUTROL 10 ML VIAL IVP ONE (12:51)
--- NOTE | 2017-12-22 16:40 | PDMN ---
Medical Necessity Medical necessity: Pt meets IP criteria per MD; est los >2 mn for eval/tx of abdominal pain of unknown etiology w/transaminitis & hypokalemia; requiring further workup, (r/o benzodiazepine withdrawal vs hypothyroid manifestation vs constipation), GI consult, IV Levothyroxine, IVFs, aggressive bowel regimen & pain management; per H&P & order 12/21/17
[2017-12-22] MEDS: NS W/ 20 KCl/L 1,000 ML IV SCH (20:39)
[2017-12-23] MEDS: oxyCODONE IR 5 MG TAB PO PRN ×4 (04:34→20:58)
[2017-12-23] MEDS: NS W/ 20 KCl/L 1,000 ML IV SCH (04:53)
[2017-12-23] MEDS: POLYETHYLENE GLYCOL 3350 17 GM PKT PO SCH ×2 (08:34→20:50)
[2017-12-23] MEDS: SENNOSIDES/DOCUSATE SODIUM TAB PO SCH ×2 (08:44→20:50)
[2017-12-23] MEDS: PANTOPRAZOLE SODIUM 40 MG TAB PO SCH (08:44)
[2017-12-23] MEDS: ENOXAPARIN 40 MG/0.4 ML SYR SC SCH (08:44)
[2017-12-23] MEDS ORDERED: MAGNESIUM SULF 1 GM/DEXTROSE 100 ML IV ONE (09:07)
[2017-12-23] MEDS: LEVOTHYROXINE 100 MCG/5 ML SYR IVP SCH (10:36)
--- NOTE | 2017-12-23 11:05 | SOAPPROG ---
SOAP Progress Note Assessment/Plan: Assessment: 1. Constipation/impaction with chronic distal colonic stricture exacerbated by narcotics. 2. Elevated LFT's improving of unclear etiology. No CBD stone on MRCP, negative viral serology, and dilation likely explained by chronic narcotics. 3. Pancreatic divisum on MRCP, doubt pancreatitis. Plan: 1. Fleet's enema today, consider Gastrografin enema with fluoroscopy if unable to move bowels. 2. Will review MRCP with Dr Turner Monday and discuss possible ERCP as an outpatient if clinical suspicion persists. Charles Castillo MD 12/23/17 10:55 Subjective: CC: Constipation and abnormal LFT's. Interval HPI: Patient c/o constipation with lower abdominal distension and discomfort. She is able to palpate distal tip of hard stool in rectal vault. No nausea or epigastric/RUQ pain. Objective: Vital Signs Temp Pulse Resp BP Pulse Ox 37.1 C 77 20 154/94 H 95 12/23/17 08:00 12/23/17 08:00 12/23/17 08:00 12/23/17 08:00 12/23/17 08:00 Laboratory Results 12/22/17 04:53 12/23/17 05:10 12/22/17 12/23/17 12/24/17 05:59 05:59 05:59 Intake Total 2750 Balance 2750 Physical Exam - Physical Exam General Appearance: WD/WN, alert, mild distress Respiratory: lungs clear, normal breath sounds Cardiac/Chest: regular rate, rhythm Abdomen: normal bowel sounds, soft, distended Rectal: deferred Skin: normal color, warm/dry Extremities: normal range of motion, other (Up walking.) Neuro/Psych: alert, oriented x 3 ICD10 Worksheet Patient Problems: Problems Problem Status Onset Abdominal pain Acute Hypokalemia Acute Hyponatremia Acute Depressive disorder Acute
[2017-12-23] MEDS: ESTRADIOL VIVELLE 0.075 MG PATCH TD SCH (11:49)
--- NOTE | 2017-12-23 13:05 | HOSPPROG ---
Hospitalist Progress Note Assessment/Plan: patient is a 67yo F with chronic pain on opioids, anxiety with benzodiazepine dependence, hypothyroidism who presents from GI clinic for abdominal pain and fever found to have electrolyte disturbances and abnormal LFTs. Today is my first encounter w the patient, chart reviewed. #Acute on chronic abdominal pain -CT unremarkable for acute pathology. CBD 7mm dilated -dilation likely explained by chronic narcotics -MRCP, No CBD stone -appreciate GI #Constipation -aggressive bowel regimen, Fleet's enema today, consider Gastrografin enema with fluoroscopy if unable to move bowels. -H pylori is negative #Transaminitis: -hepatitis panel negative -LFT's improving #Hypokalemia: -electrolyte protocol #Hypothyroidism: - TSH 65 , on last admit it was 72, free T4 0.45 on 12/16. - She has been non-compliant with taking her thyroid replacement and has again discontinued. - Levothyroxine iv #Fever: Reported at GI clinic, afebrile here. - Blood cultures pending #Anxiety: Tapered off benzodiazepines recently. - Haldol dose resumed #plan: continue IV hydration, trial of k pad, give her a name of [facility] prior to dc. Subjective: Tearful, c/o pain. Unable to eat. Objective: Vital Signs Temp Pulse Resp BP Pulse Ox 36.8 C 82 20 157/89 H 91 L 12/23/17 12:00 12/23/17 12:38 12/23/17 12:00 12/23/17 12:38 12/23/17 12:00 Laboratory Results 12/22/17 04:53 12/23/17 05:10 12/22/17 12/23/17 12/24/17 05:59 05:59 05:59 Intake Total 2750 Balance 2750 - Physical Exam Constitutional: appears nourished, chronically ill appearing, uncomfortable Eyes: PERRL, anicteric sclera, EOMI Ears, Nose, Mouth, Throat: moist mucous membranes, hearing normal, ears appear normal Cardiovascular: No JVD, No bradycardia, No edema Respiratory: no respiratory distress, no rales or rhonchi, reduced air movement Gastrointestinal: normoactive bowel sounds, tenderness, No ascites Skin: warm, normal color, No mottled Musculoskeletal: no joint effusions, pain with ROM, generalized weakness Neurologic: AAOx3 Psychiatric: not encephalopathic, anxious, depressed, poor judgement ICD10 Worksheet Patient Problems: Problems Problem Status Onset Abdominal pain Acute Hypokalemia Acute Hyponatremia Acute Depressive disorder Acute
[2017-12-23] MEDS ORDERED: OXYCODONE IR PO PRN ×2 (17:00→17:16)
[2017-12-23] MEDS ORDERED: POTASSIUM CL 10 MEQ TAB PO ONE (19:50)
[2017-12-24] MEDS: oxyCODONE IR 5 MG TAB PO PRN ×7 (01:11→22:49)
[2017-12-24] MEDS ORDERED: POTASSIUM CL 10 MEQ TAB PO ONE (08:16)
[2017-12-24] MEDS: PANTOPRAZOLE SODIUM 40 MG TAB PO SCH (08:53)
[2017-12-24] MEDS ORDERED: fentaNYL 75 MCG PATCH TD SCH (09:00)
--- NOTE | 2017-12-24 10:57 | SOAPPROG ---
SOAP Progress Note Assessment/Plan: Assessment: 1. Constipation/impaction with chronic distal colonic stricture exacerbated by narcotics and undertreated hypothyroidism. Improved with fleets enemas yesterday. 2. Elevated LFT's improving of unclear etiology. No CBD stone on MRCP, negative viral serology, and dilation likely explained by chronic narcotics. 3. Pancreatic divisum on MRCP, doubt pancreatitis. 4. Hypothyroidism with poor compliance in taking synthroid. Plan: 1. Continue with enemas PRN and Miralax daily and Synthroid po. 2. HORACE. 3. Home with F/U per our office as an outpatient. 2. Will review MRCP with Dr Turner Monday and discuss possible ERCP as an outpatient if clinical suspicion still persists. Charles Castillo MD 12/24/17 10:54 12/24/17 10:59 Subjective: CC: Abdominal pain, obstipation. Interval HPI: Patient has had good results with fleets enema and Miralax. Still c/o abdominal pain and anorexia albeit appears in no distress today and tolerating soft diet. Objective: Vital Signs Temp Pulse Resp BP Pulse Ox 37.1 C 88 16 174/135 H 93 12/24/17 08:00 12/24/17 08:00 12/24/17 08:00 12/24/17 08:00 12/24/17 08:00 Laboratory Results 12/22/17 04:53 12/24/17 04:45 12/23/17 12/24/17 12/25/17 05:59 05:59 05:59 Intake Total 2750 1270 Output Total 1430 Balance 2750 -160 Physical Exam - Physical Exam General Appearance: WD/WN, alert, no apparent distress Respiratory: chest non-tender, lungs clear, normal breath sounds Cardiac/Chest: normal peripheral pulses, regular rate, rhythm Abdomen: normal bowel sounds, non-tender, soft Skin: normal color, warm/dry Neuro/Psych: no motor/sensory deficits, alert, oriented x 3 ICD10 Worksheet Patient Problems: Problems Problem Status Onset Abdominal pain Acute Hypokalemia Acute Hyponatremia Acute Depressive disorder Acute
[2017-12-24] MEDS ORDERED: LEVOTHYROXINE 75 MCG TAB PO SCH (11:15)
[2017-12-24] MEDS: POLYETHYLENE GLYCOL 3350 17 GM PKT PO SCH ×2 (11:18→20:10)
[2017-12-24] MEDS: ENOXAPARIN 40 MG/0.4 ML SYR SC SCH (11:18)
[2017-12-24] MEDS: SENNOSIDES/DOCUSATE SODIUM TAB PO SCH ×2 (11:19→20:11)
[2017-12-24] MEDS: LEVOTHYROXINE 100 MCG/5 ML SYR IVP SCH (11:19)
[2017-12-24] MEDS: TIROSINT 75 MCG PO SCH (13:37)
--- NOTE | 2017-12-24 14:39 | HOSPPROG ---
Hospitalist Progress Note Assessment/Plan: patient is a 67yo F with chronic pain on opioids, anxiety with benzodiazepine dependence, hypothyroidism who presents from GI clinic for abdominal pain and fever found to have electrolyte disturbances and abnormal LFTs. #Acute on chronic abdominal pain -CT unremarkable for acute pathology. CBD 7mm dilated -dilation likely explained by chronic narcotics -MRCP, No CBD stone -appreciate GI, D/W Dr Maloney #Constipation -resolved -KUB ordered -aggressive bowel regimen, Fleet's enema -H pylori is negative #Transaminitis: -hepatitis panel negative -LFT's improving #Hypokalemia: -electrolyte protocol #Hypothyroidism: - TSH 65 , on last admit it was 72, free T4 0.45 on 12/16. - She has been non-compliant with taking her thyroid replacement and has again discontinued. - Levothyroxine iv -change to PO today #Fever: - Reported at GI clinic, afebrile here. - Blood cultures pending #Anxiety: - Tapered off benzodiazepines recently. - Haldol dose resumed - Librium trial #Psych -will get a psych consult in am -pt potential harm to self related to unreasonable thought process and medications #plan: -psych consult -librium -po synthroid Long discussion with pt, , RN at bedside. >35 min spent Subjective: Still having pain. Still tearful. Unable to feel better. Objective: Vital Signs Temp Pulse Resp BP Pulse Ox 37.0 C 91 12 150/93 H 96 12/24/17 11:37 12/24/17 11:37 12/24/17 11:37 12/24/17 11:37 12/24/17 11:37 Laboratory Results 12/22/17 04:53 12/24/17 04:45 12/23/17 12/24/17 12/25/17 05:59 05:59 05:59 Intake Total 2750 1270 Output Total 1430 Balance 2750 -160 - Physical Exam Constitutional: appears nourished, chronically ill appearing, uncomfortable Eyes: PERRL, anicteric sclera, EOMI Ears, Nose, Mouth, Throat: moist mucous membranes, hearing normal, ears appear normal Cardiovascular: No JVD, No tachycardia, No edema Respiratory: no respiratory distress, no rales or rhonchi, reduced air movement Gastrointestinal: distension, No tenderness, No ascites Skin: warm, normal color, No mottled Musculoskeletal: normal joint ROM, no joint effusions, pain with ROM, generalized weakness Neurologic: AAOx3 Psychiatric: anxious, depressed, poor insight, poor judgement, poor memory ICD10 Worksheet Patient Problems: Problems Problem Status Onset Depressive disorder Acute Abdominal pain Acute Hypokalemia Acute Hyponatremia Acute
--- NOTE | 2017-12-24 16:33 | ASMTCMCOM ---
CM Note CM Note Notes: Spoke with hospitalist and RN regarding pt. Pt unable to d/c at this time due to possible psychiatric concerns. Psychiatric consult ordered to happen on Monday. Anticipated pt will d/c independently. CM to follow should needs arise. D/C Plan: Home independently Date Signed: 12/24/2017 04:33 PM Electronically Signed By:Stacey Turner
[2017-12-24] MEDS: HALOPERIDOL 5 MG TAB PO PRN (23:03)
[2017-12-25] MEDS: oxyCODONE IR 5 MG TAB PO PRN ×6 (04:26→21:25)
[2017-12-25] MEDS: TIROSINT 75 MCG PO SCH (07:40)
[2017-12-25] MEDS: PANTOPRAZOLE SODIUM 40 MG TAB PO SCH (08:22)
[2017-12-25] MEDS: POLYETHYLENE GLYCOL 3350 17 GM PKT PO SCH ×2 (08:23→21:25)
[2017-12-25] MEDS: ENOXAPARIN 40 MG/0.4 ML SYR SC SCH (08:23)
[2017-12-25] MEDS: SENNOSIDES/DOCUSATE SODIUM TAB PO SCH ×2 (08:23→21:21)
--- NOTE | 2017-12-25 10:08 | SOAPPROG ---
SOAP Progress Note Assessment/Plan: Assessment: 1. Constipation/impaction with chronic distal colonic stricture exacerbated by narcotics and undertreated hypothyroidism. Improved with fleets enemas yesterday. KUB shows improvement. Wanting to advance diet. 2. Elevated LFT's improving of unclear etiology. No CBD stone on MRCP, negative viral serology, and dilation likely explained by chronic narcotics. 3. Pancreatic divisum on MRCP, doubt pancreatitis. 4. Hypothyroidism with poor compliance in taking synthroid. Plan: 1. Continue with enemas PRN and Miralax daily and Synthroid po. 2. HORACE. 3. Home with F/U per our office as an outpatient. 2. Will review MRCP with Dr Turner Monday and discuss possible ERCP as an outpatient if clinical suspicion still persists. 4. Will sign off case today. Charles Castillo MD 12/25/17 10:05 Subjective: CC: Obstipation and abdominal pain. Interval HPI: Patient feeling better today with improved affect and appetite. She wants to advance diet. Abdominal discomfort improved. Objective: Vital Signs Temp Pulse Resp BP Pulse Ox 36.8 C 105 H 18 180/105 H 95 12/25/17 07:43 12/25/17 07:43 12/25/17 07:43 12/25/17 07:43 12/25/17 07:43 Laboratory Results 12/22/17 04:53 12/24/17 04:45 12/24/17 12/25/17 12/26/17 05:59 05:59 05:59 Intake Total 1270 350 Output Total 1430 Balance -160 350 Physical Exam - Physical Exam General Appearance: WD/WN, alert, no apparent distress Respiratory: lungs clear, normal breath sounds Cardiac/Chest: regular rate, rhythm Abdomen: normal bowel sounds, non-tender, soft Skin: normal color, warm/dry Neuro/Psych: alert, normal mood/affect, oriented x 3 ICD10 Worksheet Patient Problems: Problems Problem Status Onset Abdominal pain Acute Hypokalemia Acute Hyponatremia Acute Depressive disorder Acute
--- NOTE | 2017-12-25 14:32 | HOSPPROG ---
Hospitalist Progress Note Assessment/Plan: patient is a 67yo F with chronic pain on opioids, anxiety with benzodiazepine dependence, hypothyroidism who presents from GI clinic for abdominal pain and fever found to have electrolyte disturbances and abnormal LFTs. #Acute on chronic abdominal pain -CT unremarkable for acute pathology. CBD 7mm dilated -dilation likely explained by chronic narcotics -MRCP, No CBD stone -appreciate GI, D/W Dr Maloney #Constipation -resolved -KUB stable -aggressive bowel regimen -H pylori is negative #Transaminitis: -hepatitis panel negative -LFT's improving #Hypokalemia: -electrolyte protocol #Hypothyroidism: - TSH 65 , on last admit it was 72, free T4 0.45 on 12/16. - She has been non-compliant with taking her thyroid replacement and has again discontinued. - Levothyroxine iv -change to PO today #Fever: - Reported at GI clinic, afebrile here. - Blood cultures pending #Anxiety: - Tapered off benzodiazepines recently. - Haldol dose resumed - Librium trial #Psych -D/W Dr Sr -pt potential harm to self related to unreasonable thought process and medications #plan: -psych consult -librium -po synthroid >35 min spent in coordination of care Subjective: Tearful, c/o pain. Struggling, unable to get out of bed. Objective: Vital Signs Temp Pulse Resp BP Pulse Ox 36.8 C 88 16 157/94 H 90 L 12/25/17 12:00 12/25/17 12:00 12/25/17 12:00 12/25/17 12:00 12/25/17 12:00 Laboratory Results 12/22/17 04:53 12/24/17 04:45 12/24/17 12/25/17 12/26/17 05:59 05:59 05:59 Intake Total 1270 350 Output Total 1430 Balance -160 350 - Physical Exam Constitutional: appears nourished, not in pain, chronically ill appearing Eyes: PERRL, anicteric sclera, EOMI Ears, Nose, Mouth, Throat: moist mucous membranes, hearing normal, ears appear normal Cardiovascular: No JVD, No tachycardia, No edema Respiratory: no respiratory distress, no rales or rhonchi, reduced air movement Gastrointestinal: normoactive bowel sounds, tenderness, No ascites Skin: warm, normal color, No mottled Musculoskeletal: normal joint ROM, no joint effusions, generalized weakness Neurologic: AAOx3 Psychiatric: anxious, depressed, poor insight, poor judgement ICD10 Worksheet Patient Problems: Problems Problem Status Onset Depressive disorder Acute Abdominal pain Acute Hypokalemia Acute Hyponatremia Acute
[2017-12-25] MEDS: HALOPERIDOL 5 MG TAB PO PRN (17:21)
[2017-12-26] MEDS: oxyCODONE IR 5 MG TAB PO PRN ×6 (01:01→22:06)
[2017-12-26] MEDS: TIROSINT 75 MCG PO SCH (04:56)
[2017-12-26] MEDS: PANTOPRAZOLE SODIUM 40 MG TAB PO SCH (08:48)
[2017-12-26] MEDS: ENOXAPARIN 40 MG/0.4 ML SYR SC SCH (08:51)
[2017-12-26] MEDS: POLYETHYLENE GLYCOL 3350 17 GM PKT PO SCH ×2 (08:52→20:16)
[2017-12-26] MEDS: SENNOSIDES/DOCUSATE SODIUM TAB PO SCH ×2 (08:52→20:04)
[2017-12-26] MEDS: fentaNYL 75 MCG PATCH TD SCH (09:00)
--- NOTE | 2017-12-26 16:11 | ASMTCMCOM ---
CM Note CM Note Notes: Per hospitalist, patient does not qualify for inpatient psychiatric treatment. She also does not qualify for SNF and is not able to privately pay. She will discharge home with home health RN - she has been current with [facility]'s behavioral health RN which she said is "moderately helpful." Case Managment will follow. Date Signed: 12/26/2017 04:10 PM Electronically Signed By:Kiesha Beal RN
--- NOTE | 2017-12-26 16:50 | HOSPPROG ---
Hospitalist Progress Note Assessment/Plan: patient is a 67yo F with chronic pain on opioids, anxiety with benzodiazepine dependence, hypothyroidism who presents from GI clinic for abdominal pain and fever found to have electrolyte disturbances and abnormal LFTs. #Acute on chronic abdominal pain -CT unremarkable for acute pathology. CBD 7mm dilated -dilation likely explained by chronic narcotics -MRCP, No CBD stone -appreciate GI, D/W Dr Maloney #Constipation -resolved -KUB stable -aggressive bowel regimen -H pylori is negative #Transaminitis: -hepatitis panel negative -LFT's improving #Hypokalemia: -electrolyte protocol #Hypothyroidism: - TSH 65 , on last admit it was 72, free T4 0.45 on 12/16. - She has been non-compliant with taking her thyroid replacement and has again discontinued. - Levothyroxine iv -change to PO today #Fever: - Reported at GI clinic, afebrile here. - Blood cultures pending #Anxiety: - Tapered off benzodiazepines recently. - Haldol dose resumed - Librium trial #Psych -D/W Dr Sr -pt potential harm to self related to unreasonable thought process and medications #plan: -psych consult -librium -po synthroid >35 min spent in coordination of care Subjective: anxious about having to go home still having pain Objective: Vital Signs Temp Pulse Resp BP Pulse Ox 37.2 C 103 H 16 164/99 H 93 12/26/17 15:38 12/26/17 15:38 12/26/17 15:38 12/26/17 15:38 12/26/17 15:38 Laboratory Results 12/22/17 04:53 12/24/17 04:45 12/25/17 12/26/17 12/27/17 05:59 05:59 05:59 Intake Total 350 Balance 350 - Physical Exam Constitutional: appears nourished, chronically ill appearing, uncomfortable Eyes: PERRL, anicteric sclera, EOMI Ears, Nose, Mouth, Throat: moist mucous membranes, hearing normal, ears appear normal Cardiovascular: regular rate and rhythym, no murmur, rub, or gallop, No tachycardia Respiratory: no respiratory distress, no rales or rhonchi, clear to auscultation Gastrointestinal: normoactive bowel sounds, distension, No tenderness Skin: warm, normal color, no rashes or abrasions Musculoskeletal: muscular tenderness, abnormal gait, generalized weakness Neurologic: AAOx3 Psychiatric: anxious, depressed, poor insight, poor judgement ICD10 Worksheet Patient Problems: Problems Problem Status Onset Depressive disorder Acute Abdominal pain Acute Hypokalemia Acute Hyponatremia Acute
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
[2017-12-27] MEDS: oxyCODONE IR 5 MG TAB PO PRN ×6 (03:32→20:56)
[2017-12-27] MEDS: TIROSINT 75 MCG PO SCH (05:27)
[2017-12-27] MEDS: PANTOPRAZOLE SODIUM 40 MG TAB PO SCH (08:55)
[2017-12-27] MEDS: SENNOSIDES/DOCUSATE SODIUM TAB PO SCH ×3 (11:13→21:54)
[2017-12-27] MEDS: POLYETHYLENE GLYCOL 3350 17 GM PKT PO SCH ×4 (11:13→21:54)
[2017-12-27] MEDS: ENOXAPARIN 40 MG/0.4 ML SYR SC SCH (11:16)
--- NOTE | 2017-12-27 12:05 | HOSPPROG ---
Hospitalist Progress Note Assessment/Plan: patient is a 67yo F with chronic pain on opioids, anxiety with benzodiazepine dependence, hypothyroidism who presents from GI clinic for abdominal pain and fever found to have electrolyte disturbances and abnormal LFTs. Today is my first encounter w the patient, chart reviewed. Acute on chronic abdominal pain -CT unremarkable for acute pathology. CBD 7mm dilated -dilation likely explained by chronic narcotics -MRCP, No CBD stone -appreciate GI, D/W Dr Maloney and he has no further recommendations #Constipation -resolved -KUB stable -aggressive bowel regimen -H pylori is negative #Transaminitis: -hepatitis panel negative -LFT's improving #Hypokalemia: -electrolyte protocol #Hypothyroidism: - TSH 65 , on last admit it was 72, free T4 0.45 on 12/16. - She has been non-compliant with taking her thyroid replacement and has again discontinued. - Levothyroxine iv during her stay -c hange to PO #Fever: - Reported at GI clinic, afebrile here. - Blood cultures no growth #Anxiety: - Tapered off benzodiazepines recently. - Haldol dose resumed #Psych -Dr Sr note appreciated -no IP BH at this time #plan: will check a cortisol level and ACTH in the a.m. to r/o adrenal insufficiency, will check a KUB, of note, during my evaluation; patient did not c/o abdominal pain with palpation. Had a conversation with her , he is concerned, she has had problems for years (20 years) of vague symptoms, headache , abdominal pain. She has been seen at without any improvement.He's concerned it is psychosomatic and is frustrated. Will contact Dr Maldonado to review her care. Subjective: Gayathri says she has had pain ongoing in her abdomen, nothing helps. Objective: Vital Signs Temp Pulse Resp BP Pulse Ox 37.1 C 100 18 158/116 H 99 12/27/17 11:22 12/27/17 11:22 12/27/17 11:22 12/27/17 11:22 12/27/17 11:22 Laboratory Results 12/22/17 04:53 12/24/17 04:45 12/26/17 12/27/17 12/28/17 05:59 05:59 05:59 Intake Total 1090 Output Total 400 Balance 1090 -400 - Physical Exam Constitutional: no apparent distress, uncomfortable Eyes: PERRL Ears, Nose, Mouth, Throat: hearing normal Cardiovascular: regular rate and rhythym Respiratory: no respiratory distress Gastrointestinal: normoactive bowel sounds, soft, non-tender abdomen Skin: warm Neurologic: AAOx3 Psychiatric: flat affect, poor insight ICD10 Worksheet Patient Problems: Problems Problem Status Onset Abdominal pain Acute Hypokalemia Acute Hyponatremia Acute Depressive disorder Acute
[2017-12-27] MEDS: HALOPERIDOL 5 MG TAB PO PRN ×2 (12:44→19:37)
[2017-12-27] MEDS: ESTRADIOL VIVELLE 0.075 MG PATCH TD SCH (12:50)
--- NOTE | 2017-12-27 13:07 | CPEKG ---
Test Reason : OPEN Blood Pressure : / mmHG Vent. Rate : 068 BPM Atrial Rate : 068 BPM P-R Int : 202 ms QRS Dur : 072 ms QT Int : 411 ms P-R-T Axes : 010 014 123 degrees QTc Int : 438 ms Sinus rhythm Anteroseptal infarct, old Abnormal T, consider ischemia, lateral leads Confirmed by Hudson Mccall ([id number] on 12/27/2017 1:06:37 PM Referred By: Confirmed By:Hudson Mccall
[2017-12-27] MEDS: SIMETHICONE 80 MG TAB CHEW PO PRN (15:06)
[2017-12-27] MEDS ORDERED: MIRTAZAPINE 15 MG ODTAB PO SCH ×2 (21:00)
[2017-12-28] MEDS: oxyCODONE IR 5 MG TAB PO PRN ×5 (00:02→14:11)
[2017-12-28] MEDS: TIROSINT 75 MCG PO SCH ×2 (05:14→12:00)
[2017-12-28 07:36] VITALS: BP 150/106
[2017-12-28] MEDS ORDERED: fentaNYL 75 MCG PATCH TD SCH (09:00)
--- NOTE | 2017-12-28 10:10 | HOSPPROG ---
Hospitalist Progress Note Assessment/Plan: patient is a 67yo F with chronic pain on opioids, anxiety with benzodiazepine dependence, hypothyroidism who presents from GI clinic for abdominal pain and fever found to have electrolyte disturbances and abnormal LFTs. Acute on chronic abdominal pain -CT unremarkable for acute pathology. CBD 7mm dilated -dilation likely explained by chronic narcotics -MRCP, No CBD stone -appreciate GI, D/W Dr Maloney and he has no further recommendations -checked cortisol level which is stable, low end of normal, ACTH is pending -rechecked KUB yesterday: stable #Constipation -resolved -KUB stable -aggressive bowel regimen -H pylori is negative #Transaminitis: -hepatitis panel negative -LFT's improving #Hypokalemia: -electrolyte protocol #Hypothyroidism: - TSH 65 , on last admit it was 72, free T4 0.45 on 12/16. - She has been non-compliant with taking her thyroid replacement and has again discontinued. - Levothyroxine iv during her stay -change to PO #Fever: - Reported at GI clinic, afebrile here. - Blood cultures no growth #Anxiety: - Tapered off benzodiazepines recently. - Haldol dose resumed #Psych -Dr Sr note appreciated -no IP BH at this time #plan:dc home today, spoke w Dr Sr who will see Gayathri today. I told Gayathri I am very concerned there is a large mental component to this. Explained to her the criticalness of her taking the Synthroid. Subjective: Gayathri said she has ongoing abdominal pain. Objective: Vital Signs Temp Pulse Resp BP Pulse Ox 36.9 C 88 16 150/106 H 92 12/28/17 07:33 12/28/17 07:33 12/28/17 07:33 12/28/17 07:33 12/28/17 07:33 Laboratory Results 12/22/17 04:53 12/24/17 04:45 12/27/17 12/28/17 12/29/17 05:59 05:59 05:59 Intake Total 1090 100 Output Total 800 300 Balance 1090 -700 -300 - Physical Exam Constitutional: uncomfortable Eyes: PERRL Ears, Nose, Mouth, Throat: hearing normal Respiratory: no respiratory distress Skin: warm Musculoskeletal: generalized weakness Neurologic: AAOx3 Psychiatric: flat affect, poor insight ICD10 Worksheet Patient Problems: Problems Problem Status Onset Abdominal pain Acute Hypokalemia Acute Hyponatremia Acute Depressive disorder Acute
[2017-12-28] MEDS: HALOPERIDOL 5 MG TAB PO PRN (10:16)
[2017-12-28] MEDS: PANTOPRAZOLE SODIUM 40 MG TAB PO SCH (10:18)
[2017-12-28] MEDS: ENOXAPARIN 40 MG/0.4 ML SYR SC SCH (10:18)
[2017-12-28] MEDS: SENNOSIDES/DOCUSATE SODIUM TAB PO SCH (10:19)
[2017-12-28] MEDS: POLYETHYLENE GLYCOL 3350 17 GM PKT PO SCH (10:20)
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
--- NOTE | 2017-12-28 13:24 | ASMTLACE ---
NEERAJ Length of stay for Answers: 7-13 days current admission Acuity / Level of Answers: Yes Care: Did the patient have an inpatient admission? Comorbidities - select Answers: Opioid dependence all that apply / Chronic pain Other Notes: Hypothyroidism; HTN # of Emergency department Answers: 1-2 visits in the last 6 months Social determinants Answers: Mental health diagnosis (anxiety, depression, pers onality disorders, etc.) Score: 17 Date Signed: 12/28/2017 01:19 PM Electronically Signed By:Jinny De La Rosa
[2017-12-28] MEDS: SIMETHICONE 80 MG TAB CHEW PO PRN (14:16)
--- NOTE | 2017-12-28 15:32 | ASMTCMCOM ---
CM Note CM Note Notes: Pt has decided to return home following D/C. She has declined admittance to psychiatric hospital/ She will continue with [facility] and they have been notified. She intends to continue seeing her individual therapist. D/C Plan: Home with home care, including work with a behavioral health, through [facility]. Date Signed: 12/28/2017 03:31 PM Electronically Signed By:Jinny De La Rosa
--- NOTE | 2017-12-28 15:34 | ASMTDCNOTE ---
Case Management Discharge Discharge Order Complete? Answers: Yes Patient to Obtain Answers: via Family Medications Transportation Arranged Answers: Family/Friends Faxed Final Orders Answers: Yes Agency/Facility Transfer Answers: Yes Report Printed & Faxed to Receiving Agency Family Notified Answers: Yes Discharge Comments Notes: Pt D/Delfino with [facility] including behavioral health and continued individual therapy. She declined in-patient psychiatric hospitalization. Date Signed: 12/28/2017 03:33 PM Electronically Signed By:Jinny De La Rosa
--- NOTE | 2017-12-28 16:29 | PDIAF ---
- Diagnosis Diagnosis: abdominal pain, FTT Code Status: Full Code - Medication Management Discharge Medications: Medications to Continue on Transfer Estradiol [Vivelle-Dot 0.075MG (*)] 0.075 mg TD Q4D 10/26/17 [Last Taken ] fentaNYL [Duragesic 75 MCG Patch (*)] 75 mcg TD Q4D 10/26/17 [Last Taken ] Haloperidol [Haldol 5 MG (*)] 5 mg PO BID PRN 12/21/17 [Last Taken Unknown] Ondansetron [Zofran Odt] 8 mg PO Q6HRS PRN 12/21/17 [Last Taken Unknown] fentaNYL [Duragesic 75 MCG Patch (*)] 75 mcg TD Q4D 12/21/17 [Last Taken ] Oxycodone Ir 20mg Tablet 10 mg PO Q4H PRN 12/23/17 [Last Taken Unknown] Tirosint 75 mcg PO DAILY06 12/24/17 [Last Taken Unknown] Acetaminophen [Tylenol 325mg (*)] 650 mg PO Q4HRS PRN tab 12/28/17 [Last Taken Unknown] MIRTAZAPINE [Remeron 7.5 mg] 7.5 mg PO HS #21 tablet 12/28/17 [Last Taken Unknown] Polyethylene Glycol 3350 [Miralax 17 gm (*)] 17 gm PO BID pkt 12/28/17 [Last Taken Unknown] Simethicone [Mylicon] 80 mg PO BID PRN tab.chew 12/28/17 [Last Taken Unknown] Discharge Medications: Refer to the Discharge Home Medication list for PRN reason. PICC Care - Routine: N/A - Orders Services needed: Home Care, Registered Nurse, Master Ultrasound Supervisor Home Care Face to Face: I certify that this patient was under my care and that I had the required [id number] encounter meeting the encounter requirements on the discharge day. My findings support the fact that the patient is homebound as defined in Home Care Face to Face Continued: CMS Chapter 7 Medicare Benefits Manual 30.1.1 , The condition of the patient is such that there exists a normal inability to leave home and consequently, leaving home would require a considerable and taxing effort. Isolation Type: None Diet Recommendation: no restrictions on diet Diet Texture: Regular Texture Diet Additional Instructions: Your prescription was sent to [facility] in [place]. Recommending you f/u [follow up] with your therapist. Really encouraging you to work with Dr Maldonado and get off the fentanyl patch, this slows down your stomach causing worsening abdominal pain. Walk every day outside x 15 minutes. Consider seeking alternative treatment for your pain. Dr Bailey works in same office as Dr Maldonado and may be able to provide alternative treatments. He has a background in this. Get a warm water bottle and place on your abdomen while eating. Follow up with Dr Turner in gastroenterology for f/u [follow up] appt. repeat TSH in 6 weeks, recommending you see an Archeology Professor - Follow Up Care Current Providers and Referrals: Canelo Maldonado MD [Primary Care Provider] - As per Instructions
--- NOTE | 2017-12-28 17:37 | GDS ---
[f rep st] DISCHARGE SUMMARY DISCHARGE DIAGNOSIS: 1. Acute on chronic abdominal pain. 2. Constipation. 3. Transaminitis. 4. Hypokalemia. 5. Hypothyroidism. 6. Fever. 7. Anxiety. 8. Psychiatric issues. CONSULTATIONS: 1. Dr. Lisbeth Sr. 2. Dr. Leana Solano. HISTORY OF PRESENT ILLNESS: Briefly, the patient is a 67-year-old woman with a history of chronic pain on opioids, anxiety with benzodiazepine dependence, hypothyroidism, who presented from the GI clinic for ongoing abdominal pain and fever. She had been worsening, but mostly left-sided abdominal pain for several weeks. She also was evaluated at [facility] for symptoms on December 16, where an abdominal CT had no acute findings. During her stay, she had a CT of the abdomen performed, which showed mild prominence of the biliary tree with common bile duct measuring up to 0.7 cm. The patient is status post cholecystectomy. No radiopaque stones were identified. MRCP was subsequently performed and this showed moderate intrahepatic and extrahepatic biliary dilation at the level of the major papilla. There was no common bile duct stone or pancreatic head mass. She had a smooth, benign tapering of the distal duct that favors a benign process. Her pancreatic divisum is an anatomic variation. She has no evidence of acute or chronic pancreatitis. She has minimal hepatic steatosis. No liver lesions or cirrhosis. She has minimal bibasilar atelectasis and trace new pleural effusions. She continued to have complaints of abdominal pain. She had multiple abdominal x-rays that showed constipation. She was seen and followed by Gastroenterology, who believed that her issues were mostly related to constipation with a chronic distal colonic stricture exacerbated by narcotics. Her LFTs improved throughout her stay, but her abdominal pain continued. She was checked for H pylori; this was negative. She was checked for celiac disease , which was noted to be extremely unlikely. She has also had a cortisol level checked, which was within stable limits. Hepatitis panel was also performed which is negative. Reviewed her care with Gastroenterology. They did not believe there was any significant source of her abdominal pain. Subsequently, she was evaluated and seen by Lisbeth Sr, Psychiatry. Her diagnosis was the patient had major depression disorder that is severe, as well as severe hypothyroidism, and she would like to rule out somatoform disorder. The patient was recommended to get regular outpatient visits and grief support, as well as continuing mirtazapine M tab q.h.s. The patient initially had decided she would go to Behavioral Health on her own accord. This is in the process of being arranged. She then decided she did not want to go to Behavior Health and would rather continue individual therapy. She will be discharged home with [facility], including Behavioral Health, and continued individual therapy. HOSPITAL COURSE PER PROBLEM: 1. Acute on chronic abdominal pain. No clear-cut etiology was ever noted or found. I spoke with the patient that I think her anxiety and depression have played into this. At this time, she has declined further help in Behavioral Health. I have given her multiple ideas of how to help herself. 2. Constipation. This is resolved. Recommending that she get off her fentanyl patch which is slowing down her gut and causing a lot of these issues. 3. Transaminitis. LFTs are improving. 4. Hypokalemia. Electrolyte protocol. 5. Hypothyroidism. Her TSH is 65, on her last admit was 72, with a free T4 of 0.45. She has been noncompliant taking her thyroid medication. I reviewed with her how critical it is that she stays on this medication. Recommended that she get her TSH checked in 6 weeks. 6. Fever. Blood culture showed no growth. She has been afebrile during her stay. 7. Anxiety. She was tapered off her benzodiazepines. Have resumed her Haldol. 8. Psychiatric issues, including major depression. She has been given multiple options. She has declined any further evaluation at inpatient Behavioral Health. DISCHARGE CONDITION: Stable. VITAL SIGNS: Blood pressure is 120/72, heart rate 73, respiratory rate 14, O2 sats on 2 L are 94%, temperature is 37 degrees Celsius. MEDICATIONS AT DISCHARGE: Please see the EMR. Her only new medication is Remeron 7.5 mg p.o. q.h.s., just to do a trial of this to see if this helps with her appetite. RECOMMENDATIONS: 1. Recommending that she follow up with Dr. Maldonado to get out of her narcotics and also she could consider working with Dr. Malathi Bailey. He has a strong background in Integrated Medicine. 2. Recommending warm water bottle to see if that helps her pain. 3. Follow up with Dr. Turner. 4. Repeat TSH. 5. Her ACTH is pending. Greater than 30 minutes discharging and coordinating the patient's care. /[id number]/MODL MTDD
[2017-12-30] MEDS ORDERED: fentaNYL 75 MCG PATCH TD SCH (09:00)
== END 2017-12-28 16:52 | disposition home or self-care (01) | DRG 392 ==
LOC: OBSVTOIN 21:24 → F3E 21:45
PROVIDERS: ADMIT Internal Medicine; ATTEND Internal Medicine
DX: R10.11 Right upper quadrant pain (principal); K59.03 Drug induced constipation; T40.605A Adverse effect of unspecified narcotics, initial encounter; E87.6 Hypokalemia; G89.29 Other chronic pain; F11.20 Opioid dependence, uncomplicated; F13.20 Sedative, hypnotic or anxiolytic dependence, uncomplicated; E03.9 Hypothyroidism, unspecified; Z91.128 Patient's intentional underdosing of medication regimen for other reason; T38.1X6A Underdosing of thyroid hormones and substitutes, initial encounter; F41.8 Other specified anxiety disorders; I10 Essential (primary) hypertension; R74.0 Nonspecific elevation of levels of transaminase and lactic acid dehydrogenase [LDH]
CPT/HCPCS: 82024-90; 82784-90; 83516-90; 96374; 97162-GP; 97165-GO; 97530-GP; A9585; G0472; G8978-GP-CK; G8979-GP-CJ; G8987-GO-CI; G8988-GO-CI; G8989-GO-CI; J1170; J1630; J1650; J2270; J2405; J3480; Q9967

== ENCOUNTER → 2017-12-21 | Outpatient (CLI) | payer OTHER | LOC: FIMAGING 09:26 | PROVIDERS: ATTEND Internal Medicine | DX: R10.9 Unspecified abdominal pain (principal); R14.3 Flatulence ==